=== PATIENT | male | born 1975 | race Caucasian/White ===

== ENCOUNTER → 2018-11-13 14:21 | Outpatient (CLI) | payer BC, SELFPAY ==
--- NOTE | 2018-11-13 14:33 | XR_ITS ---
XR knee RT 3V HISTORY: ITS.REASON: RT KNEE PAIN ORDERING PHYSICIAN: Dayna Babb PATIENT AGE: 43 years COMPARISON: None FINDINGS: No fracture or dislocation. No lytic or blastic change. Normal mineralization. No significant arthritic changes evident. No other significant findings IMPRESSION: Negative Knee
== END ==
PROVIDERS: PCP Nurse Practitioner Family; Visit Provider Nurse Practitioner Family
DX: M25.561 Pain in right knee (principal)
CPT/HCPCS: 73562

== ENCOUNTER → 2019-01-16 09:57 | Outpatient (CLI) | payer BC, SELFPAY ==
--- NOTE | 2019-01-16 09:58 | MR_ITS ---
MR knee RT wo con HISTORY: Knee pain with popping medially, painful to walk, limited range of motion ITS.REASON: right knee pain; evaluate for meniscal tear ORDERING PHYSICIAN: Kayla Cueva MD PATIENT AGE: 43 years Comparison: 01/05/2019 TECHNIQUE: Standard multiplanar multiecho sequences are performed without contrast. FINDINGS: The cruciate ligaments are intact. The collateral ligaments are intact. Patellar tendon and quadriceps tendon has an unremarkable appearance. Patellar cartilage is well preserved. There is a small knee joint effusion. There is a complex tear involves the posterior horn of the medial meniscus having both a horizontal and longitudinal component with increased T2 signal in the meniscus at the region.. There is some lobular increased T2 signal at the base and just medial to the tibial insertion of the posterior cruciate ligament of questionable significance possibly related to a flipped meniscal fragment with edema. There is a small knee joint effusion. IMPRESSION: 1. Complex tear involves the posterior horn of the medial meniscus with possible flipped meniscal fragment or 2. Small knee joint effusion
== END ==
PROVIDERS: PCP Family Medicine; Visit Provider Orthopaedic Surgery
DX: M25.561 Pain in right knee (principal)
CPT/HCPCS: 73721

== ENCOUNTER → 2019-01-24 11:23 | Outpatient (CLI) | payer BC, SELFPAY ==
--- NOTE | 2019-01-24 11:38 | XR_ITS ---
XR chest 2V HISTORY: HISTORY of smoking CAD. ITS.REASON: pre op ORDERING PHYSICIAN: Kayla Cueva MD PATIENT AGE: 43 years Technique: PA and lateral chest COMPARISON: 2 view chest from March 2017 also portable chest from 2016 FINDINGS: Nothing definitely acute. Subtle coarsening markings bilaterally suggesting some minor chronic changes but very minimal. Compatible with history of smoking. Mild hyperexpansion noted on the lateral view. Slight flattening of the diaphragm. The heart is normal in size. The rashmi and mediastinal structures appears stable. The more generous right rashmi appearsreasonably stable with no significant change. Normal pulmonary vascularity. Chest wall is unremarkable. T-spine appears stable. Intact. IMPRESSION Stable chest with nothing definitely acute. Mild hyperexpansion subtle chronic changes reflecting history of smoking
[2019-01-24 12:07] LABS: INR 0.95 (0.9-1.1); Prothrombin Time 9.8 seconds (9.4-11.8)
[2019-01-24 12:31] LABS: Basophils # 0.1 K/mm3 (0-0.2); Eosinophils # 0.2 K/mm3 (0.0-0.4); Eosinophils % 4.1 % (0.1-12.0); Hematocrit 48.7 % (42.0-52.0); Hemoglobin 16.3 g/dL (14.1-18.0); Lymphocytes # 2.2 K/mm3 (0.7-4.5); Lymphocytes % 38.2 % (10-50); Mean Corpuscular HGB Conc 33.5 g/dL (31.8-35.4); Mean Corpuscular Volume 92.3 fl (80-94); Mean Platelet Volume 9.1 fl (7.4-10.4); Monocytes # 0.4 K/mm3 (0.1-1.0); Monocytes % 6.8 % (1.7-9.3); Neutrophils # 2.9 K/mm3 (1.8-7.8); Neutrophils % 49.9 % (37.0-80.0); Platelet Count 187 K/mm3 (142-424); Red Blood Count 5.28 M/mm3 (4.60-6.20); Red Cell Distribution Width 13.1 % (11.5-17.5); White Blood Count 5.8 K/mm3 (4.8-10.8)
[2019-01-24 13:31] LABS: Alanine Aminotransferase 46 U/L (12-78); Albumin Level 4.1 gm/dL (3.4-5.0); Albumin/Globulin Ratio 1.3 (1.1-1.8); Alkaline Phosphatase 37 U/L (46-116); Anion Gap 13.3 mEq/L (5-15); Aspartate Amino Transferase 23 U/L (15-37); Bilirubin,Total 0.9 mg/dL (0.2-1.0); Blood Urea Nitrogen 20 mg/dL (7-18); Calcium 9.3 mg/dL (8.5-10.1); Carbon Dioxide 27 mmol/L (21.0-32.0); Chloride 104 mmol/L (98-107); Creatinine,Serum 0.86 mg/dL (0.70-1.30); Estimated Glomerular Filt Rate 98 ml/min (>60); GFR (African American) 118 ML/MIN (>60); Globulin 3.1 gm/dl (1.3-3.2); Glucose 101 mg/dL (74-106); Potassium 4.3 mmoL/L (3.5-5.1); Sodium 140 mmol/L (136-145); Total Protein,Serum 7.2 gm/dL (6.4-8.2)
== END ==
PROVIDERS: Visit Provider Orthopaedic Surgery
DX: Z01.818 Encounter for other preprocedural examination (principal); S83.231D Complex tear of medial meniscus, current injury, right knee, subsequent encounter
CPT/HCPCS: 36415; 71046; 80053; 85025; 85610

== ENCOUNTER 2019-03-28 15:30 | Outpatient (RCR) | payer BC, SELFPAY ==
--- NOTE | 2019-02-18 10:33 | HMH.PTOPEV ---
PT Outpatient Evaluation Rehab PT Outpatient Evaluation Start: 02/18/19 10:21 Freq: Status: Active Protocol: Document 02/18/19 10:21 NICOLE (Rec: 02/18/19 10:33 NICOLE [id number]) Electronically Signed By Osbaldo Garsia, PT 02/18/19 10:21 Outpatient Therapy Subjective History Subjective History Pt is a 43 year old male presenting to outpatient PT with reports of R post- surgical knee pain S/P R medial meniscectomy and medial plica excision performed on . Pt reports initial injury occurred on 01/12/19 when he was stepping out of the bed of a truck and his knee buckled upon contact with the ground. Comorbidities include HTN and hx of bilateral wrist surgeries. Main complaint is pain in distribution of distal vastus lateralis. Chief Complaint Pain,Stiff,Swelling,Weakness Symptom Type Sharp,Other Symptoms Relieved By Rest/Positioning,Ice Symptoms Aggravated By Standing,Physical Activity, Walking Prior Functional Limitations None Current Functional Limitations Housework,Standing,Squatting, Recreation Activity,Walking, Stairs,Balance Symptom Description Intermittent Level of pain today (0-10) 0 Pain scale - at its best (0-10) 0 Pain scale - at its worst (0-10) 4 Hip/Knee Eval Gait Observation General Gait Pattern Observation Antalgic Gait,Decrease Weight Bear (R) Assistive Device Assistive Devices None / NA Palpation Tenderness right Knee Palpation Finding Tenderness Knee Palpation Overall Comment R VL and medial joint line. MMT left Hip Flexion Strength Grade 5 Normal Hip Abduction Strength Grade 5 Normal Hip Adduction Strength Grade 5 Normal Hip Extension Strength Grade 5 Normal Hip External Rotation Strength Grade 5 Normal Hip Internal Rotation Strength Grade 5 Normal Knee Extension Strength Grade 5 Normal Knee Flexion Strength Grade 5 Normal right Hip Flexion Strength Grade 4 Good Hip Abduction Strength Grade 4 Good Hip Adduction Strength Grade 4 Good Hip Extension Strength Grade 4 Good Hip External Rotation Strength Grade 4- Good- Hip Internal Rotation Strength Grade 4- Good- Knee Extension Strength Grade
== END 2019-03-28 15:35 | disposition home or self-care (01) ==
LOC: PT 15:30
PROVIDERS: Visit Provider Orthopaedic Surgery
DX: S83.231D Complex tear of medial meniscus, current injury, right knee, subsequent encounter (principal)
CPT/HCPCS: 97010; 97014; 97110; 97163; G0283

== ENCOUNTER → 2019-07-10 09:18 | Outpatient (CLI) | payer BC, SELFPAY ==
--- NOTE | 2019-07-10 09:41 | XR_ITS ---
PROCEDURE: XR CHEST 2V CLINICAL HISTORY: COUGH Cough and congestion, smoker COMPARISON: CXR CHEST(2 VIEWS-NOT PORTABLE) from 03/29/2017 CXR1 CHEST-PORTABLE from 06/27/2017 CXR2V XR chest 2V from 01/24/2019 FINDINGS: Borderline cardiomegaly without failure. Lungs are clear bilaterally. The lungs are clear without infiltrates, suspicious nodules, or pleural effusions. Degenerative change thoracic spine IMPRESSION: Borderline cardiomegaly. No change with no acute finding Dictated by: Rusty Roberts MD 07/10/2019 13:22 Electronically signed by Rusty Roberts MD in [place] 07/10/2019 13:22
== END ==
PROVIDERS: PCP Nurse Practitioner Family; Visit Provider Nurse Practitioner Family
DX: R05 Cough (principal)
CPT/HCPCS: 71046

== ENCOUNTER → 2019-12-12 13:50 | Outpatient (CLI) | payer BC, SELFPAY | PROVIDERS: PCP Nurse Practitioner Family; Visit Provider Nurse Practitioner Family | DX: R40.0 Somnolence (principal); R51 Headache; R06.83 Snoring; G47.33 Obstructive sleep apnea (adult) (pediatric) | CPT/HCPCS: G0399 ==

== ENCOUNTER → 2020-01-19 14:00 | Outpatient (CLI) | payer BC, SELFPAY ==
--- NOTE | 2020-01-19 14:03 | XR_ITS ---
PROCEDURE: XR CHEST 2V CLINICAL HISTORY: COUGH, FEVER, CHILLS,SOB COMPARISON: CXR2V XR chest 2V from 01/24/2019 XR CHEST 2V from 07/10/2019 FINDINGS: The cardiomediastinal silhouette and pulmonary vascularity are within normal limits. The lungs are clear without infiltrates, suspicious nodules, or pleural effusions. No acute bony abnormalities. IMPRESSION: No acute findings. Dictated by: Aaron Page 01/19/2020 15:49 Electronically signed by Aaron Page in [place] 01/19/2020 15:49
[2020-01-19 14:14] LABS: Adenovirus,PCR Not Detected (NotDetected); Bordetella Pertussis Not Detected (NotDetected); Chlamydophila Pneumoniae, PCR Not Detected (NotDetected); Coronavirus 229E Not Detected (NotDetected); Coronavirus NL63 Not Detected (NotDetected); Coronavirus OC43 Not Detected (NotDetected); Coronovirus HKU1,PCR Not Detected (NotDetected); Human Metapneumovirus Not Detected (NotDetected); Influenza A, PCR Not Detected (NotDetected); Influenza AH1, 2009 Not Detected (NotDetected); Influenza AH1, PCR Not Detected (NotDetected); Influenza AH3,PCR Not Detected (NotDetected); Influenza B, PCR Not Detected (NotDetected); Mycoplasma Pneumoniae, PCR Not Detected (NotDetected); Parainfluenza 1, PCR Not Detected (NotDetected); Parainfluenza 2, PCR Not Detected (NotDetected); Parainfluenza 3, PCR Not Detected (NotDetected); Parainfluenza 4, PCR Not Detected (NotDetected); Respiratory Syncytial Virus Not Detected (NotDetected); Rhinovirus/Enterovirus Not Detected (NotDetected)
== END ==
PROVIDERS: PCP Nurse Practitioner; Visit Provider Nurse Practitioner
DX: R06.02 Shortness of breath (principal); R05 Cough; R50.9 Fever, unspecified
CPT/HCPCS: 71046; 87486; 87581; 87633; 87798

== ENCOUNTER → 2020-01-30 14:59 | Outpatient (CLI) | payer BC, SELFPAY ==
--- NOTE | 2020-02-01 20:10 | PC.NURSE ---
Dr. Salgado notified of negative COVID-19 at 195 on 02/01/20. Pt notified @ 2009 on 02/01/20.
[2020-02-02 11:03] LABS: Covid-19 Nasal PCR Sendout Lex NOT DETECTED
== END ==
PROVIDERS: Visit Provider Nurse Practitioner Family
DX: R06.02 Shortness of breath (principal); R05 Cough; R50.9 Fever, unspecified

== ENCOUNTER → 2020-06-25 10:03 | Outpatient (CLI) | payer BC, SELFPAY ==
--- NOTE | 2020-06-25 | XR_ITS ---
PROCEDURE: XR WRIST LT MIN 3V CLINICAL INDICATION: L WRIST PAIN, STATUS POST WRIST SURGERY COMPARISON: CR WRL3 WRIST-3 VIEWS-LT from 01/01/2015 FINDINGS: The volar metallic radial plate is again noted fixated by multiple threaded screws. There is no evidence of loosening of the plate or screws when compared to the previous study 01/01/2015., the distal ulna is intact. The carpal bones appear intact. IMPRESSION: No acute findings. Dictated by: Dr. Blaine Castaneda MD 06/25/2020 12:59 Dr. Blaine Castaneda MD in [place] 06/25/2020 12:59
--- NOTE | 2020-06-25 | XR_ITS ---
PROCEDURE: XR WRIST RT MIN 3V CLINICAL INDICATION: R WRIST PAIN, STATUS POST WRIST SURGERY COMPARISON: CR WRL3 WRIST-3 VIEWS-LT from 01/01/2015 FINDINGS: The volar metallic radial plate is noted fixated by multiple threaded screws into the distal radius and radial styloid. There is mild deformity of the distal radius consistent with the old healed fracture. There is an unfused fracture ulnar styloid. The carpal bones appear intact. There is minor narrowing and spurring of the 1st carpometacarpal joint. There is no acute fracture seen. IMPRESSION: Stable previous ORIF distal radial fracture, unfused ulnar styloid fracture fragment, no previous studies available for comparison. Dictated by: Dr. Blaine Castaneda MD 06/25/2020 12:56 Dr. Blaine Castaneda MD in [place] 06/25/2020 12:56
== END ==
PROVIDERS: PCP Nurse Practitioner Family; Visit Provider Nurse Practitioner Family
DX: M25.531 Pain in right wrist (principal); M25.532 Pain in left wrist; Z98.890 Other specified postprocedural states
CPT/HCPCS: 73110

== ENCOUNTER 2020-07-24 08:28 | Emergency (ER) | payer BC, SELFPAY ==
[2020-07-24 08:30] VITALS: BP 157/98; PULSE 79; RESP 20; TEMP 36.6; O2SAT 100; BMI 38.6
--- NOTE | 2020-07-24 08:37 | HMH.EDGENADL ---
ED Disposition Clinical Impression: Ureteral calculus, Nephrolithiasis, Cyst of spleen Disposition: Home, Self-Care Condition on Discharge: Good Instructions: DI for Kidney Stones Additional Instructions: Cipro as prescribed. Zofran as needed for nausea and vomiting. [place] as needed for pain. Additional instructions for KIDNEY STONE (URETERAL CALCULUS): See your physician as soon as possible for further evaluation. Drink plenty of fluids. Strain your urine and save any stones you catch. Return immediately if you develop a fever or have uncontrollable vomiting or uncontrollable pain. Additional instructions for URINARY TRACT INFECTION: See your physician in 2-3 days for follow up and culture results. Return immediately if you have an uncontrollable fever greater than 102 degrees, severe back or abdominal pain, inability to urinate, or repetitive vomiting. What is known about DIET and KIDNEY STONES: Most kidney stones contain calcium oxalate. The logical assumption would be that you should avoid calcium and oxalate in your diet. Contrary to what you would think, this is not necessarily the case. What is actually recommended for kidney stone prevention is a diet that contains MODERATELY HIGH AMOUNTS OF CALCIUM and is LOW IN SODIUM with PLENTY OF FLUIDS. Avoiding oxalate containing foods is recommended by some experts, but is controversial. Following the DASH (Dietary Approaches to Stop Hypertention) has been shown to significantly reduce the incidence of kidney stones. The DASH diet encourages you to reduce the sodium in your diet and eat a variety of foods rich in nutrients that help lower blood pressure, such as potassium, calcium and magnesium. Recommendations: Fluids: It is widely agreed upon that you need to drink plenty of fluids. A minimum would be 8-10 glasses (8 oz each) of fluid per day. Some experts recommend as much as 14-15 glasses a day. Sodium: The way to lower calcium in your urine is to lower your sodium intake. Try not to get more than 1500 mg a day. Calcium: Dietary calcium prevents absorption of oxalate. Make sure you get about 1000 to 1200 mg a day. You can get enough calcium from dairy products without taking supplements. Calcium should be ingested with meals, not in between meals. You need to get your calcium at mealtime to decrease the absorption of oxalate from other foods. Oxalate: Although some experts recommend avoiding oxalate in your diet, there have been no studies that prove this works. Eating more calcium will reduce oxalate absorption, and is probably all that is needed to reduce oxalate in your urine. Oxalate containing foods are generally good for you in all other respects - leafy greens, nuts, etc... So avoiding them unnecessarily might not be the best thing for your health. If you want to do something to avoid oxalate, avoid spinach and rhubarb - those are extremely high in oxalate (or at least eat a high calcium meal with these). ALSO: If you retrieve your stone by straining your urine, take it to your physician for stone analysis, which can help tailor your dietary recommendations. For further reading, check out the [facility] web page about the kidney stone diet: [email or web address] Prescriptions: Hydrocod/Acet 5/325 mg [[place] 5/325mg tablet] 1 tab PO Q6HP PRN #10 tab PRN Reason: Pain Transmission Status: Received by [facility] # Ciprofloxacin HCl [Ciprofloxacin 500mg Tab] 500 mg PO BID #20 tab Transmission Status: Received by [facility] # Ondansetron [Zofran 4mg ODT] 4 mg PO TIDP PRN #10 tab.rapdis PRN Reason: Nausea And Vomiting Transmission Status: Received by [facility] # Referrals: Dayna Babb APRN [Primary Care Provider] - - Critical Care Critical Care Time: No Attestation: On , the high probability of a clinically significant,
--- NOTE | 2020-07-24 08:52 | CT_ITS ---
PROCEDURE: CT ABDOMEN PELVIS WO CON CLINICAL INDICATION: right flank pain COMPARISON: CT ABDPELW CT ABD PELVIS W/ CONTRAST from 06/27/2017 TECHNIQUE: Axial images obtained with sagittal and coronal reformats. All CT scans at the facility use one or more dose reduction, viz: automated exposure control, ma/kV adjustment per patient size (including targeted exams where dose is matched to indication, i.e. head), or iterative reconstruction technique. FINDINGS: Lower thorax: The lower lung vera are clear and there is no pleural fluid. Cardiac size is normal and there is no pericardial effusion. ABDOMEN: Liver: No masses or biliary dilatation. Gallbladder: Nondistended. No radio opaque stones. Pancreas: No masses or peripancreatic fluid collections. Spleen: There is a spherical partially calcified cystic-appearing mass superior aspect of the spleen unchanged in size and overall appearance from the previous CT exam 06/27/2017 and probably a calcified posttraumatic cyst. It measures 4.5 by 4.9 x 4.4 cm. Adrenals: unremarkable Kidneys/ureters: The kidneys are normal in size. There is a tiny 1-2 mm nonobstructing calculus lower pole left kidney and a similar 1-2 mm nonobstructing calculus midpole right kidney. There is borderline hydroureter right-side down to the UV junction. There is a small 3-4 mm calculus sitting in the urinary bladder just beyond the UV junction probably recently passed. ABDOMEN & PELVIS: Stomach bowel: There is a small sliding hiatal hernia. The stomach and small bowel appear normal. The appendix is normal in caliber and partially air-filled. There is moderate scattered stool and gas seen throughout the colon Peritoneum: No abnormal fluid collections. No obvious inflammatory changes. No free air. Lymph nodes: No enlarged lymph nodes apparent. Vasculature: No evidence of abdominal aortic aneurysm. No retroperitoneal hemorrhage evident. Bones: No acute fracture PELVIS: Reproductive: unremarkable Bladder: The urinary bladder is partially decompressed, a small calculus sits posterior superior right side of the bladder probably recently passed. The prostate is normal. Appendix: Unremarkable. No distention or periappendiceal phlegmonous change. . IMPRESSION: Stable benign-appearing calcified cystic lesion of the spleen. Tiny nonobstructing calculus in each kidney. Small calculus right side of the urinary bladder probably representing a recently passed right ureteral calculus. Dictated by: Dr. Blaine Castaneda MD 07/24/2020 09:54 Dr. Blaine Castaneda MD in [place] 07/24/2020 09:54
[2020-07-24 08:58] LABS: Basophils # 0.1 K/mm3 (0-0.2); Basophils % 0.5 % (0.1-2.0); Eosinophils % 0.4 % (0.1-12.0); Hematocrit 48.5 % (42.0-52.0); Hemoglobin 16.7 g/dL (14.1-18.0); Lymphocytes # 1.2 K/mm3 (0.7-4.5); Lymphocytes % 11.6 % (10-50); Mean Corpuscular HGB Conc 34.5 g/dL (31.8-35.4); Mean Corpuscular Volume 92.6 fl (80-94); Mean Platelet Volume 8.9 fl (7.4-10.4); Microscopic, Urine URINE MICROSCOPIC (MICROSCOPIC); Monocytes # 0.4 K/mm3 (0.1-1.0); Monocytes % 3.4 % (1.7-9.3); Neutrophils % 84.1 % (37.0-80.0); Platelet Count 228 K/mm3 (142-424); Red Blood Count 5.23 M/mm3 (4.60-6.20); Red Cell Distribution Width 13.3 % (11.5-17.5); White Blood Count 10.7 K/mm3 (4.8-10.8)
[2020-07-24 09:04] LABS: Appearance,Urine SL CLOUDY (Clear); Bilirubin,Urine Negative (Negative); Blood, Urine TRACE-I (Negative); Chloride 102 mmol/L (98-107); Color,Urine YELLOW (Yellow); Glucose,Urine (UA) Negative (Negative); Ketones,Urine Negative (Negative); Leukocyte Esterase,Urine 1+ (Negative); Nitrate,Urine Negative (Negative); Potassium 4.2 mmoL/L (3.5-5.1); Protein,Urine Negative (Negative); Sodium 139 mmol/L (136-145); Specific Gravity, Urine >= 1.030 (1.005-1.030); Urobilinogen,Urine 0.2 EU/dl (0.2)
[2020-07-24 09:06] LABS: Bacteria,Urine 1+ /lpf
[2020-07-24 09:07] LABS: Alanine Aminotransferase 46 U/L (12-78); Albumin Level 4.7 g/dl (3.5-5.0); Albumin/Globulin Ratio 1.6 (1.1-1.8); Alkaline Phosphatase 41 U/L (38-126); Anion Gap 13.2 mEq/L (5-15); Aspartate Amino Transferase 35 U/L (17-59); Bilirubin,Total 0.9 mg/dl (0.2-1.3); Blood Urea Nitrogen 25 mg/dl (9-20); Calcium 9.9 mg/dl (8.4-10.2); Carbon Dioxide 28 mmol/L (22.0-30.0); Creatinine Clearance Estimated 144 mL/min (50-200); Estimated Glomerular Filt Rate 66 ml/min (>60); GFR (African American) 80 ML/MIN (>60); Globulin 2.9 g/dL (1.3-3.2); Glucose 149 mg/dl (74-100); Lipase 87 U/L (23-300); Total Protein,Serum 7.6 g/dl (6.3-8.2)
--- NOTE | 2020-07-24 09:14 | PC.NURSE ---
Pt to rad.
[2020-07-24 10:17] VITALS: BP 145/85; PULSE 80; RESP 17; TEMP 36.8; O2SAT 100
== END 2020-07-24 10:24 | disposition home or self-care (01) ==
PROVIDERS: Emergency Provider Emergency Medicine; PCP Nurse Practitioner Family
DX: N20.0 Calculus of kidney (principal); N20.1 Calculus of ureter; D73.4 Cyst of spleen; Z88.5 Allergy status to narcotic agent; F17.210 Nicotine dependence, cigarettes, uncomplicated
CPT/HCPCS: 74176; 80053; 81001; 83690; 85025; 87086; 96374; 96375; 99283; J2405

== ENCOUNTER 2020-07-28 13:19 | Emergency (ER) | payer BC, SELFPAY ==
[2020-07-28 13:47] VITALS: BP 131/80; PULSE 84; RESP 19; TEMP 36.9; O2SAT 98; BMI 39.2
--- NOTE | 2020-07-28 14:05 | HMH.EDUTC ---
[facility] [place] Impression: Allergic rhinitis Qualifiers: Allergic rhinitis trigger: unspecified Allergic rhinitis seasonality: unspecified Qualified Code(s): J30.9 - Allergic rhinitis, unspecified Disposition: Home, Self-Care Condition on Discharge: Good Instructions: Allergic Rhinitis, DI for Allergic Rhinitis Additional Instructions: *Monitor Temp, Over the counter Motrin or Tylenol as directed/as needed Tylenol every 4 hours and Motrin every 6 hours (as long as your family doctor has told you that you can take it) for fever or pain. and straight to ER if unable to lower temp less than 101.0 after medication given *Warm salt water gargles may help to soothe the throat *Throat Lozenges *Warm fluids like tea with honey may help to soothe the throat *Sleep elevated *Humidifier/Vaporizer *Flonase 2 sprays in each nostril daily but be aware that it may take 2-3 days before you notice improvement Follow up IMMEDIATELY for new or worsening symptoms or no Noticeable improvement over the next 48-72 hours. 911 for difficulty breathing or swallowing You was tested for today for COVID19 your test result should be back later this evening, you may call back later this evening to see if your test results are back and the result You was given a handout with instructions for Self Quarantine and Self isolation for while you wait on test results and what to do if they are positive Prescriptions: Fluticasone Propionate [Flonase 50mcg nasal spray 16gm] 1 - 2 spr NS DAILY #1 bottle Transmission Status: Received by [facility] #[id number] Referrals: Dayna Babb APRN [Primary Care Provider] - As needed Forms: Work/School Release Time of Disposition: 14:10 Medical Decision Making - Sam Inquiry Pt receiving controlled substance: No Sam was queried for this patient: No Vital Signs: 07/28/20 13:47 Temperature 98.4 F Temperature Source Oral Pulse Rate [Radial] 84 Respiratory Rate 19 Blood Pressure [Right Arm] 131/80 Blood Pressure Mean [Right Arm] 97 Blood Pressure Source [Right Arm] Automatic Cuff Blood Pressure Position [Right Arm] Sitting 02 Sat by Pulse Oximetry 98 Oxygen Delivery Method Room Air Orders (Tests/Meds): ORDERS Category Date Time Status Covid-19 Nasal PCR ([facility]) Routine Lab 07/28/20 13:59 [place] [facility] [place] - General Stated complaint: Cough, runny nose Time Seen by Provider: 07/28/20 14:05 Mode of Arrival: Ambulatory Source of Information: Patient Limitations: No Limitations Description of Symptoms (Recalled from Triage Doc. by RN): runny nose, sneezing, and cough HEENT Symptoms (Recalled from RN notes): Yes Resp Symptoms (Recalled from RN notes): No Skin Symptoms (Recalled from RN notes): No MS Symptoms (Recalled from RN notes): No Functional Status (Recalled from RN notes): wnl - History of Present Illness Provider Complaint: Paitent states that he has been having cough, sneezing and runny nose States that he feels like it is allergies but not had seasonal allergies before States that he was at work and they sent him and his son home due to both having similar symptoms - Related Data Home Medications Medication Instructions Recorded Confirmed losartan 50 mg tablet 50 mg PO DAILY 01/07/19 04/18/19 Previous Rx's Medication Instructions Recorded Ibuprofen [Ibuprofen 600mg 600 mg PO Q6HP PRN #30 tab 01/05/19 Tablet] Ciprofloxacin HCl [Ciprofloxacin 500 mg PO BID #20 tab 07/24/20 500mg Tab] Hydrocod/Acet 5/325 mg [[place] 1 tab PO Q6HP PRN #10 tab 07/24/20 5/325mg tablet] Ondansetron [Zofran 4mg ODT] 4 mg PO TIDP PRN #10 tab.rapdis 07/24/20 Fluticasone Propionate [Flonase 1 - 2 spr NS DAILY #1 bottle 07/28/20 50mcg nasal spray 16gm] Allergies Allergy/AdvReac Type Severity Reaction Status Date / Time codeine [CODEINE] Allergy Mild Verified 04/18/19 13:28 - Worker's Comp Is this a Worker's Comp case?: No [facility] History - Hep
[2020-07-28 14:42] VITALS: BP 131/80; PULSE 84; RESP 19; TEMP 36.9; O2SAT 98
== END 2020-07-28 14:43 | disposition home or self-care (01) ==
PROVIDERS: Emergency Provider Nurse Practitioner; PCP Nurse Practitioner Family
DX: J30.9 Allergic rhinitis, unspecified (principal); Z20.828 Contact with and (suspected) exposure to other viral communicable diseases; I10 Essential (primary) hypertension; F17.210 Nicotine dependence, cigarettes, uncomplicated
CPT/HCPCS: 99201; U0003

== ENCOUNTER → 2020-08-23 09:24 | Outpatient (CLI) | payer BC, SELFPAY ==
[2020-08-23 10:20] VITALS: PULSE 65; PULSE 70
== END ==
PROVIDERS: PCP Nurse Practitioner Family; Visit Provider Family Medicine
DX: R06.2 Wheezing (principal); Z72.0 Tobacco use
CPT/HCPCS: 94060; 94640

== ENCOUNTER 2020-11-26 08:35 | Emergency (ER) | payer BC, SELFPAY ==
[2020-11-26] VITALS (8 sets, daily range): BP systolic 117–168; BP diastolic 51–100; PULSE 56–74; RESP 16–20; TEMP 36.6–37.1; O2SAT 92–98; BMI 40.2
--- NOTE | 2020-11-26 08:34 | ECG_ITS ---
APPROVED REPORT Exam: Resting ECG HR:86 bpm ECG Measurements Heart Rate 86 AXES SC 148 P 27 QRSd 96 QRS 142 QT 378 T 23 QTc 452 Conclusion Normal sinus rhythm Right axis deviation Abnormal ECG Electronically signed by : Franklin Banegas, 11/26/2020 15:58:16
--- NOTE | 2020-11-26 08:51 | XR_ITS ---
PROCEDURE: XR CHEST 2V CLINICAL HISTORY: chest pain COMPARISON: CR CXR2V XR chest 2V from 01/24/2019 CR XR CHEST 2V from 07/10/2019 DX XR CHEST 2V from 01/19/2020 FINDINGS: The cardiomediastinal silhouette and pulmonary vascularity are within normal limits. The lungs are clear without infiltrates, suspicious nodules, or pleural effusions. No acute bony abnormalities. IMPRESSION: No acute findings. Dictated by: Rusty Roberts MD 11/26/2020 09:13 Rusty Roberts MD in [place] 11/26/2020 09:13
[2020-11-26 08:59] LABS: Basophils # 0.1 K/mm3 (0-0.2); Basophils % 1.5 % (0.1-2.0); Chloride 105 mmol/L (98-107); Eosinophils # 0.2 K/mm3 (0.0-0.4); Eosinophils % 2.4 % (0.1-12.0); Hematocrit 47.8 % (42.0-52.0); Hemoglobin 15.5 g/dL (14.1-18.0); Lymphocytes # 2.4 K/mm3 (0.7-4.5); Lymphocytes % 33.5 % (10-50); Mean Corpuscular HGB Conc 32.4 g/dL (31.8-35.4); Mean Corpuscular Volume 92.6 fl (80-94); Monocytes # 0.4 K/mm3 (0.1-1.0); Monocytes % 4.9 % (1.7-9.3); Neutrophils # 4.1 K/mm3 (1.8-7.8); Neutrophils % 57.7 % (37.0-80.0); Platelet Count 218 K/mm3 (142-424); Potassium 3.5 mmoL/L (3.5-5.1); Red Blood Count 5.17 M/mm3 (4.60-6.20); Sodium 139 mmol/L (136-145); White Blood Count 7.1 K/mm3 (4.8-10.8)
[2020-11-26 09:02] LABS: Anion Gap 9.5 mEq/L (5-15); Blood Urea Nitrogen 21 mg/dl (9-20); Calcium 9.9 mg/dl (8.4-10.2); Carbon Dioxide 28 mmol/L (22.0-30.0); Creatinine Clearance Estimated 200 mL/min (50-200); Estimated Glomerular Filt Rate 92 ml/min (>60); GFR (African American) 111 ML/MIN (>60); Glucose 132 mg/dl (74-100)
--- NOTE | 2020-11-26 09:03 | HMH.EDCP ---
ED Disposition Clinical Impression: Nonspecific chest pain Hypertension Qualifiers: Hypertension type: essential hypertension Qualified Code(s): I10 - Essential (primary) hypertension Disposition: Home, Self-Care Condition on Discharge: Good Instructions: DI for Atypical Chest Pain Referrals: PCP,No [Non-Staff] - Bret Edwards MD [Staff Physician] - - Critical Care Critical Care Time: No Attestation: On 11/26/20, the high probability of a clinically significant, sudden or life threatening deterioration of the following system(s) required my full and direct attention, intervention and personal management. The time I documented below is in addition to time spent performing reported procedures but includes the following listed in this critical care notation. Medical Decision Making - Medical Records Medical records reviewed: Yes: I reviewed the patient's medical records. - Sam Inquiry Pt receiving controlled substance: No Vital Signs: 11/26/20 08:36 11/26/20 09:22 11/26/20 09:30 Temperature 98.7 F Temperature Source Oral Pulse Rate [Left Radial] 74 67 70 Respiratory Rate 20 18 18 Blood Pressure [Right Arm] 168/86 H 135/100 H 130/75 Blood Pressure Mean [Right Arm] 113 111 93 Blood Pressure Source [Right Arm] Automatic Cuff Automatic Cuff Blood Pressure Position [Right Arm] Sitting Supine 02 Sat by Pulse Oximetry 96 94 L 96 Oxygen Delivery Method Room Air Room Air 11/26/20 10:40 11/26/20 11:26 11/26/20 11:40 Temperature Temperature Source Pulse Rate [Left Radial] 56 L 64 59 L Respiratory Rate 16 18 18 Blood Pressure [Right Arm] 123/80 117/80 124/79 Blood Pressure Mean [Right Arm] 94 92 94 Blood Pressure Source [Right Arm] Blood Pressure Position [Right Arm] 02 Sat by Pulse Oximetry 92 L 97 95 Oxygen Delivery Method 11/26/20 12:35 Temperature Temperature Source Pulse Rate [Left Radial] 59 L Respiratory Rate 16 Blood Pressure [Right Arm] 136/51 L Blood Pressure Mean [Right Arm] 79 Blood Pressure Source [Right Arm] Blood Pressure Position [Right Arm] 02 Sat by Pulse Oximetry 97 Oxygen Delivery Method - Lab Data Lab Results 11/26/20 08:35: Sodium 139, Potassium 3.5, Chloride 105, Carbon Dioxide 28, Anion Gap 9.5, BUN 21 H, Creatinine 0.90, Estimated Creat Clear 200, Estimated GFR 92, Est GFR ( Amer) 111, Glucose 132 H, Calcium 9.9, Troponin I < 0.01 11/26/20 08:35: WBC 7.1, RBC 5.17, Hgb 15.5, Hct 47.8, MCV 92.6, MCH 30.0, MCHC 32.4, RDW 13.0, Plt Count 218, MPV 9.0, Neut % (Auto) 57.7, Lymph % (Auto) 33.5, [place] % (Auto) 4.9, Eos % (Auto) 2.4, Baso % (Auto) 1.5, Neut # (Auto) 4.1, Lymph # (Auto) 2.4, [place] # (Auto) 0.4, Eos # (Auto) 0.2, Baso # (Auto) 0.1 11/26/20 11:40: Troponin I < 0.01 Result diagrams: 11/26/20 08:35 11/26/20 08:35 Orders (Tests/Meds): ORDERS Category Date Time Status Troponin I Q3H Lab 11/26/20 15:00 Ordered - ECG Data Tracing #1 ECG initial impression date: 11/26/20 ECG initial impression time: 08:36 ECG normal with no acute: arrhythmias, ischemia, conduction abnormalities, chamber hypertrophy - Reevaluation(s) Time: 12:36 Reevaluation #1: On reevaluation, patient is feeling better. 2 - troponins. No significant EKG changes. Patient needs to follow-up with PCP. Given strict return precautions. Verbalized understanding. Medical Decision Narrative: 45-year-old male presented to the emergency department with chest discomfort. Patient appears very anxious on examination. His blood pressure is improving. Patient is low risk for acute coronary syndrome based on heart score. Work-up initiated. Chest Pain HPI - General Chief Complaint: Chest Pain Stated Complaint: chest pain Time Seen by Provider: 11/26/20 08:45 Mode of Arrival: Ambulatory Limitations: No Limitations Description of Symptoms (Recalled from ER Triage Doc. by RN): c/o center chest pain that started about 30 minutes ago. His was wo
[2020-11-26 09:19] LABS: Troponin I < 0.01 ng/ml (0.00-0.034)
--- NOTE | 2020-11-26 11:43 | PC.NURSE ---
repeat trop drawn and sent to lab
[2020-11-26 12:26] LABS: Troponin I < 0.01 ng/ml (0.00-0.034)
== END 2020-11-26 12:50 | disposition home or self-care (01) ==
PROVIDERS: Emergency Provider Emergency Medicine; PCP Nurse Practitioner Family
DX: R07.9 Chest pain, unspecified (principal); I10 Essential (primary) hypertension; F17.210 Nicotine dependence, cigarettes, uncomplicated; Z88.5 Allergy status to narcotic agent
CPT/HCPCS: 71046; 80048; 84484; 85025; 93005; 99283

== ENCOUNTER → 2021-03-28 12:06 | Outpatient (CLI) | payer BC, SELFPAY | PROVIDERS: PCP Family Medicine; Visit Provider Family Medicine | DX: Z20.822 Contact with and (suspected) exposure to COVID-19 (principal) | CPT/HCPCS: U0003 ==

== ENCOUNTER → 2021-06-14 12:08 | Outpatient (CLI) | payer BC, SELFPAY ==
--- NOTE | 2021-06-14 12:10 | XR_ITS ---
PROCEDURE: XR WRIST RT MIN 3V CLINICAL INDICATION: right wrist pain COMPARISON: CR WRL3 WRIST-3 VIEWS-LT from 01/01/2015 CR XR WRIST RT MIN 3V from 06/25/2020 CR XR WRIST LT MIN 3V from 06/25/2020 FINDINGS: No fracture or dislocation. No lytic or blastic change. There is normal mineralization. There is a volar bone plate at the distal radius anteriorly with multiple cortical screws with good alignment. Old distal radial fracture noted. Old ununited ulnar styloid fracture. There are mild osteoarthritic changes at the radiocarpal joint. There also appears to be an old fracture of the 5th metacarpal Other findings:None. IMPRESSION: Postsurgical changes with old healed distal radial ulnar and 5th metacarpal fractures. Osteoarthritic changes radiocarpal joint Dictated by: Rusty Roberts MD 06/14/2021 13:36 Rusty Roberts MD in [place] 06/14/2021 13:36
--- NOTE | 2021-06-14 14:19 | XR_ITS ---
PROCEDURE: XR WRIST LT MIN 3V CLINICAL INDICATION: left wrist pain COMPARISON: CR WRL3 WRIST-3 VIEWS-LT from 01/01/2015 CR XR WRIST RT MIN 3V from 06/25/2020 CR XR WRIST LT MIN 3V from 06/25/2020 CR XR WRIST RT MIN 3V from 06/14/2021 FINDINGS: There is a small volar bone plate along the distal radius anteriorly with good alignment Small cystic areas present within the lunate not significantly changed measuring approximately 1 cm transverse Other findings:None. IMPRESSION: No acute findings. Dictated by: Rusty Roberts MD 06/14/2021 15:32 Rusty Roberts MD in [facility] 06/14/2021 15:32
--- NOTE | 2021-06-14 14:19 | XR_ITS ---
PROCEDURE: XR WRIST RT 2V CLINICAL INDICATION: right wrist pain COMPARISON: CR WRL3 WRIST-3 VIEWS-LT from 01/01/2015 CR XR WRIST RT MIN 3V from 06/25/2020 CR XR WRIST LT MIN 3V from 06/25/2020 CR XR WRIST RT MIN 3V from 06/14/2021 FINDINGS: Status post ORIF distal radial fracture with volar bone plate multiple cortical screws with good alignment of the healing distal radial fracture. Ulnar styloid process fracture once again noted The joint spaces are well-preserved. No significant degenerative/arthritic changes. No erosive changes evident. Other findings:None. IMPRESSION: Healing distal radial fracture with good alignment Dictated by: Rusty Roberts MD 06/14/2021 15:30 Rusty Roberts MD in [facility] 06/14/2021 15:30
== END ==
LOC: RAD 12:09
PROVIDERS: PCP Family Medicine; Visit Provider Orthopaedic Surgery
DX: M25.531 Pain in right wrist (principal); M25.532 Pain in left wrist
CPT/HCPCS: 73100; 73110

== ENCOUNTER → 2021-06-20 12:30 | Outpatient (CLI) | payer BC, SELFPAY ==
--- NOTE | 2021-06-20 12:37 | CT_ITS ---
PROCEDURE: CT WRIST RT WO CON CLINICAL HISTORY: sp ORIF 15+ years ago outside facility Wrist pain COMPARISON: CR XR WRIST RT 2V from 06/14/2021 TECHNIQUE: Axial images obtained with sagittal and coronal reformats. All CT scans at the facility use one or more dose reduction, viz: automated exposure control, ma/kV adjustment per patient size (including targeted exams where dose is matched to indication, i.e. head), or iterative reconstruction technique. FINDINGS: S/p ORIF of the distal radius. There is an anterior bone plate with multiple cortical screws. No intra-articular extension of the screws.. The prosthesis appears intact. No broken screws or loosening of the prosthesis evident. There is good alignment of the distal radius. There is an ununited ulnar styloid process fracture. No acute fracture or dislocation. No significant arthritic changes apparent. No lytic or blastic change apparent. No abnormal fluid collections. Small hyperdensity is present in the subcutaneous region of the wrist anteriorly and slightly lateral and could be due to a subcutaneous calcification or even a small foreign body at approximately 1-2 mm. IMPRESSION: Status post ORIF distal radius as described above with good alignment. No intra-articular extension of the screws. Dictated by: Rusty Roberts MD 06/21/2021 10:37 Rusty Roberts MD in [facility] 06/21/2021 10:37
== END ==
LOC: RAD 12:31
PROVIDERS: PCP Family Medicine; Visit Provider Orthopaedic Surgery
DX: M25.531 Pain in right wrist (principal)
CPT/HCPCS: 73200

== ENCOUNTER → 2021-07-25 13:23 | Outpatient (CLI) | payer BC, SELFPAY ==
--- NOTE | 2021-07-25 13:33 | XR_ITS ---
PROCEDURE: XR CHEST 2V CLINICAL HISTORY: preop; surgery 07/28/ smoker hypertension COMPARISON: CR XR CHEST 2V from 07/10/2019 DX XR CHEST 2V from 01/19/2020 CR XR CHEST 2V from 11/26/2020 FINDINGS: There is mild cardiomegaly without failure. The lungs are clear without infiltrates, suspicious nodules, or pleural effusions. No acute bony abnormalities. IMPRESSION: Mild cardiomegaly otherwise negative Dictated by: Rusty Roberts MD 07/25/2021 17:32 Rusty Roberts MD in [facility] 07/25/2021 17:32
[2021-07-25 13:41] LABS: Basophils # 0.1 K/mm3 (0-0.2); Basophils % 1.4 % (0.1-2.0); Eosinophils # 0.3 K/mm3 (0.0-0.4); Eosinophils % 3.6 % (0.1-12.0); Hematocrit 46.6 % (42.0-52.0); Hemoglobin 15.4 g/dL (14.1-18.0); Lymphocytes # 2.7 K/mm3 (0.7-4.5); Lymphocytes % 32.9 % (10-50); Mean Corpuscular Volume 96.9 fl (80-94); Mean Platelet Volume 9.1 fl (7.4-10.4); Monocytes # 0.4 K/mm3 (0.1-1.0); Monocytes % 4.8 % (1.7-9.3); Neutrophils # 4.7 K/mm3 (1.8-7.8); Neutrophils % 57.3 % (37.0-80.0); Platelet Count 204 K/mm3 (142-424); Red Blood Count 4.81 M/mm3 (4.60-6.20); Red Cell Distribution Width 13.8 % (11.5-17.5); White Blood Count 8.2 K/mm3 (4.8-10.8)
[2021-07-25 14:41] LABS: Alanine Aminotransferase 38 U/L (12-78); Albumin/Globulin Ratio 1.7 (1.1-1.8); Alkaline Phosphatase 35 U/L (38-126); Anion Gap 6.2 mEq/L (5-15); Aspartate Amino Transferase 28 U/L (17-59); Bilirubin,Total 0.9 mg/dl (0.2-1.3); Blood Urea Nitrogen 16 mg/dl (9-20); Calcium 9.1 mg/dl (8.4-10.2); Carbon Dioxide 31 mmol/L (22.0-30.0); Chloride 105 mmol/L (98-107); Estimated Glomerular Filt Rate 122 ml/min (>60); GFR (African American) 148 ML/MIN (>60); Globulin 2.4 g/dL (1.3-3.2); Glucose 103 mg/dl (74-100); Potassium 4.2 mmoL/L (3.5-5.1); Sodium 138 mmol/L (136-145); Total Protein,Serum 6.4 g/dl (6.3-8.2)
== END ==
PROVIDERS: Visit Provider Orthopaedic Surgery
DX: Z01.818 Encounter for other preprocedural examination (principal); G56.03 Carpal tunnel syndrome, bilateral upper limbs
CPT/HCPCS: 36415; 71046; 80053; 85025

== ENCOUNTER → 2021-07-26 09:44 | Outpatient (CLI) | payer BC, SELFPAY | PROVIDERS: Visit Provider Orthopaedic Surgery | DX: Z01.818 Encounter for other preprocedural examination (principal); Z11.52 Encounter for screening for COVID-19; G56.03 Carpal tunnel syndrome, bilateral upper limbs | CPT/HCPCS: C9803; U0003; U0005 ==

== ENCOUNTER 2021-07-28 06:57 | Day surgery (SDC) | payer BC, SELFPAY ==
[2021-07-26 10:15] VITALS: BMI 39.6
[2021-07-28 07:52] VITALS: BP 137/85; PULSE 64; RESP 18; TEMP 36.4; O2SAT 97
--- NOTE | 2021-07-28 09:09 | P.PN_ITS ---
[facility] Anesthesia Checklist - Patient Identification Patient Identification: Arm Band - Structural Data Admitted From: Home Planned Operative Procedure/s: Carpal tunnel release Consent for Planned Operative Procedure(s) Verified: Yes - NPO Status Verified Time NPO: 00:00 - Additional verifications Anesthesia Reactions: No Hx Blood Transfusions: No Blood Transfusion Reaction: No - Airway Assessment C-Spine Mobility Assessed: Yes TMJ Mobility Assessed: Yes Dentition: Good Dentition - Neurological Assessment Level of Consciousness: Awake Hx Seizures: No Numbness or tingling in extremities: No - Anesthesia Plan Anesthesia Risk discussed: Yes Anesthesia Plan: Verified ASA Class: III Anesthesia Type: Local & MAC [facility] History I have reviewed the patient's past medical history: Yes Medical History: Reports:: Hypertension Denies:: Cancer, Diabetes Mellitus Type 1, Diabetes Mellitus Type 2, Internal Pacemaker, MRSA, Seizures *Have you ever received a pneumonia vaccine?: No *Have you received a flu vaccine this season?: No Other Medical History: Denies: Blood Transfusion Reaction Anesthesia experience/problems:: None Laterality Cases: Left: Arthroscopy Knee, Bilateral: Carpal Tunnel Release, Other Other Surgeries: Yes: Other. No: Pacemaker Amputation: No Fractures: Yes - *Social History Last grade of school completed: High school graduate Smoking Status: Current every day smoker Tobacco Type: cigarettes # Packs/Day (cigarettes): 1 Alcohol Intake: never Substance Use Type: denies use *Occupational Status:: employed Housing: house Household Members: spouse *Travel in the last 8 weeks: None Family Hx:: Heart Attack
[2021-07-28 11:23] VITALS: BP 136/75; PULSE 60; RESP 18; TEMP 36.1; O2SAT 93
[2021-07-28 11:38] VITALS: BP 117/75; PULSE 58; RESP 18; O2SAT 94
[2021-07-28 11:53] VITALS: BP 118/73; PULSE 50; RESP 18; TEMP 36.4; O2SAT 95
--- NOTE | 2021-07-28 23:13 | HMH.OPNOTE ---
Date of procedure: 07/28/21 Pre-op Diagnosis:: Recurrent carpal tunnel syndrome, right wrist Post-op Diagnosis:: Same Procedure performed:: Revision open carpal tunnel release, right wrist Surgeon:: Luciano Stewart MD Guest Advisor(s):: Arely Weiss PA-C METAL FABRICATOR HELPER:: Katharina Isaac Anesthesia: LMA Estimated blood loss (mL): 2 Clinical Note:: Patient is a 46-year-old male with recurrent right carpal tunnel syndrome with long-standing symptoms. He also has symptoms on the left side did not have any previous surgery on the left. The EMG/NCV studies confirmed moderate carpal tunnel syndrome on both sides with the left side being slightly worse. However patient is more symptomatic on the right side. Also he previously had distal radius fracture fixation which he needed revising; he also had a right carpal tunnel release at that time. He reports worsening symptoms and patient failed to respond adequately to conservative management. Therefore, a revision carpal tunnel release surgery is necessary to relieve symptoms, preserve the remaining fibers of the median nerve, improve function and decrease the pain, paresthesias and weakness and to prevent permanent nerve damage. He is a chronic smoker. 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 His medical history includes hypertension. Please refer to my office note for full details. Operative findings:: The intraoperative findings showed a lot of scarring from the previous surgery. The median nerve was seen to be very tightly compressed and hyperemic. Extensive scar tissue and adhesions were noted in the distal forearm as well as in the carpal tunnel. A lot of scar tissue was noted at the level of the the flexor retinaculum which was compressing the median nerve. The median nerve is noted to be intact. There were no space-occupying lesions within the carpal tunnel. Operative note:: On the day of the surgery the patient was met in the preoperative area. Patient was positively identified and the operative site was marked and initialed by me. A physical examination was performed and the chart was updated. I have again discussed the procedure, risks and benefits and alternatives with the patient. The complications discussed include but are not limited to- bleeding, injury to nerves, blood vessels and tendons, infection, wound dehiscence, incomplete relief/continued pain, persistent numbness, palmar hypersensitivity, pillar pain, DVT/PE, complex regional pain syndrome(CRPS), worsening of nerve damage, failure of the condition to improve, incomplete return of function, bowstringing of tendons, weakness of rn support services strength, recurrence, failure of the surgery to accomplish the desired goals, decreased use of the hand, loss of use of the arm, loss of the hand or arm, loss of life. Likely need for further surgery in the future has been discussed. I have told him that I will be going through the previous surgical incision as I do not want to make a separate incision to avoid problems with the skin necrosis given the fact that he already had multiple surgeries in this area. I have discussed the possibility of extending the incision as needed to accomplish an effective release. We have discussed how the goal of surgery is to protect the fibers which have remained healthy and hopefully reverse the symptoms of the fibers which are compromised but still recoverable. I have explained that, fibers that are permanently damaged will not recover. Patient asked appropriate questions and all have been answered by me. Patient understood the risks, agreed to proceed with surgery and no guarantees or assurances were given or implied. The patient was brought to the operating room and placed supine on the operating table. The right upper extremity was placed over a side table. All the bony prominences were well-padded. The patient had a general anesthetic administered by the mud cleaner operator. A well-padded tourniquet cuff was placed over the upper arm. The r
== END 2021-07-28 11:53 | disposition home or self-care (01) ==
LOC: OR 06:58
PROVIDERS: PCP Family Medicine; Visit Provider Orthopaedic Surgery
PROC: (CPT 64721; principal; 2021-07-28 08:45)
DX: G56.01 Carpal tunnel syndrome, right upper limb (principal)
CPT/HCPCS: 64721; 96374; J2704

== ENCOUNTER → 2021-08-23 09:58 | Outpatient (CLI) | payer BC, SELFPAY ==
[2021-08-23 10:21] LABS: Basophils # 0.1 K/mm3 (0-0.2); Basophils % 1.5 % (0.1-2.0); Eosinophils # 0.3 K/mm3 (0.0-0.4); Eosinophils % 3.8 % (0.1-12.0); Hematocrit 48.6 % (42.0-52.0); Hemoglobin 16.2 g/dL (14.1-18.0); Lymphocytes # 2.5 K/mm3 (0.7-4.5); Lymphocytes % 34.2 % (10-50); Mean Corpuscular HGB Conc 33.4 g/dL (31.8-35.4); Mean Corpuscular Hemoglobin 31.7 pg (27.0-31.2); Mean Corpuscular Volume 94.8 fl (80-94); Mean Platelet Volume 10.1 fl (7.4-10.4); Monocytes # 0.5 K/mm3 (0.1-1.0); Monocytes % 6.9 % (1.7-9.3); Neutrophils # 3.9 K/mm3 (1.8-7.8); Neutrophils % 53.6 % (37.0-80.0); Platelet Count 215 K/mm3 (142-424); Red Blood Count 5.12 M/mm3 (4.60-6.20); Red Cell Distribution Width 13.6 % (11.5-17.5); White Blood Count 7.2 K/mm3 (4.8-10.8)
[2021-08-23 11:07] LABS: Alanine Aminotransferase 35 U/L (12-78); Albumin Level 4.3 g/dl (3.5-5.0); Albumin/Globulin Ratio 1.6 (1.1-1.8); Alkaline Phosphatase 36 U/L (38-126); Anion Gap 12.7 mEq/L (5-15); Aspartate Amino Transferase 26 U/L (17-59); Bilirubin,Total 0.5 mg/dl (0.2-1.3); Blood Urea Nitrogen 12 mg/dl (9-20); Calcium 9.4 mg/dl (8.4-10.2); Carbon Dioxide 27 mmol/L (22.0-30.0); Chloride 105 mmol/L (98-107); Estimated Glomerular Filt Rate 105 ml/min (>60); GFR (African American) 126 ML/MIN (>60); Globulin 2.7 g/dL (1.3-3.2); Glucose 97 mg/dl (74-100); Potassium 4.7 mmoL/L (3.5-5.1); Sodium 140 mmol/L (136-145)
== END ==
PROVIDERS: Visit Provider Orthopaedic Surgery
DX: Z01.818 Encounter for other preprocedural examination (principal); Z11.52 Encounter for screening for COVID-19; G56.02 Carpal tunnel syndrome, left upper limb
CPT/HCPCS: 36415; 80053; 85025; C9803; U0003; U0005

== ENCOUNTER 2021-08-25 09:04 | Day surgery (SDC) | payer BC, SELFPAY ==
[2021-08-17 12:52] VITALS: BMI 39.7
[2021-08-25 09:33] VITALS: BP 147/88; PULSE 70; RESP 18; TEMP 36.7; O2SAT 97
--- NOTE | 2021-08-25 10:46 | P.PN_ITS ---
[facility] Anesthesia Checklist - Patient Identification Patient Identification: Arm Band - Structural Data Admitted From: Home Planned Operative Procedure/s: Left CTR Consent for Planned Operative Procedure(s) Verified: Yes Verified Documents: Surgical Consent, History and Physical - NPO Status Verified Time NPO: 00:00 - Additional verifications Anesthesia Reactions: No Hx Blood Transfusions: No Blood Transfusion Reaction: No - Airway Assessment C-Spine Mobility Assessed: Yes (mp2) TMJ Mobility Assessed: Yes Dentition: Good Dentition - Neurological Assessment Level of Consciousness: Awake, Alert - Anesthesia Plan Anesthesia Risk discussed: Yes Anesthesia Plan: Verified ASA Class: III Anesthesia Type: MAC w/Block (Supraclavicular block. Risks/benefits discussed. Pt verbalized understanding) [facility] History I have reviewed the patient's past medical history: Yes Medical History: Reports:: Chronic Obstructive Pulmonary Disease (COPD), Hypertension Denies:: Cancer, Diabetes Mellitus Type 1, Diabetes Mellitus Type 2, Internal Pacemaker, MRSA, Seizures *Have you ever received a pneumonia vaccine?: Yes *Have you received a flu vaccine this season?: No Other Medical History: Denies: Blood Transfusion Reaction Anesthesia experience/problems:: nac Laterality Cases: Left: Arthroscopy Knee, Right: Carpal Tunnel Release, Bilateral: Other Other Surgeries: Yes: Other. No: Pacemaker Amputation: No Fractures: Yes - *Social History Last grade of school completed: 11th or 12th Smoking Status: Current every day smoker Tobacco Type: cigarettes # Packs/Day (cigarettes): 1 Alcohol Intake: never Substance Use Type: denies use *Occupational Status:: employed Housing: house Household Members: spouse *Travel in the last 8 weeks: None Family Hx:: No significant family history
[2021-08-25 11:30] VITALS: BP 97/44; PULSE 62; RESP 18; TEMP 36.3; O2SAT 94
[2021-08-25 11:40] VITALS: BP 90/54; PULSE 56; RESP 18; O2SAT 93
[2021-08-25 11:50] VITALS: BP 101/61; PULSE 68; RESP 18; O2SAT 94
[2021-08-25 12:10] VITALS: BP 111/66; PULSE 60; RESP 18; O2SAT 95
[2021-08-25 12:27] VITALS: BP 110/68; PULSE 60; RESP 18; O2SAT 95
--- NOTE | 2021-08-25 22:51 | HMH.OPNOTE ---
Date of procedure: 08/25/21 Pre-op Diagnosis:: Carpal tunnel syndrome, left Post-op Diagnosis:: Same Procedure performed:: Open carpal tunnel release, left wrist Surgeon:: Luciano Stewart MD Studio Artist(s):: Arely Weiss PA-C DOBIE MAN:: Katharina Isaac Anesthesia: MAC, regional (Supraclavicular nerve block) Estimated blood loss (mL): 2 Clinical Note:: Patient is a 46-year-old male with left carpal tunnel syndrome with long-standing symptoms. The clinical findings are consistent with the diagnosis of carpal tunnel syndrome. Previously EMG/NCV studies confirmed carpal tunnel syndrome on both sides and he recently underwent successful revision carpal tunnel release on the right side. Patient is having significant and disabling symptoms and has failed to respond adequately to conservative management. Therefore, carpal tunnel release surgery is necessary to relieve symptoms, preserve the remaining fibers of the median nerve, improve function and decrease the pain, paresthesias and weakness and to prevent permanent nerve damage. Please refer to my office note for full details. Operative findings:: The intraoperative findings showed the median nerve to be very tightly compressed and hyperemic. The flexor retinaculum was noted to be thick and tight. There was mild synovitis in the carpal tunnel. There was no evidence of any space-occupying lesions within the carpal tunnel. Operative note:: On the day of the surgery the patient was met in the preoperative area. Patient was positively identified and the operative site was marked and initialed by me. A physical examination was performed and the chart was updated. I have again discussed the procedure, risks, benefits and alternatives with the patient. The complications discussed include but are not limited to- bleeding, injury to nerves, blood vessels and tendons, infection, wound dehiscence, incomplete relief/continued pain, persistent numbness, palmar hypersensitivity, pillar pain, DVT/PE, complex regional pain syndrome(CRPS), worsening of nerve damage, failure of the condition to improve, incomplete return of function, bowstringing of tendons, weakness of housekeeper and laundry assistant strength, recurrence, failure of the surgery to accomplish the desired goals, decreased use of the hand, loss of use of the arm, loss of the hand or arm, loss of life. Likely need for further surgery in the future has been discussed. I've indicated to the patient where the proposed incision would be made and also discussed the possibility of extending the incision if needed to accomplish an effective release. We have discussed how the goal of surgery is to protect the fibers which have remained healthy and hopefully reverse the symptoms of the fibers which are compromised but still recoverable. We have explained that, fibers that are permanently damaged will not recover. Patient asked appropriate questions and all have been answered by me. Patient wished to proceed with the surgery. Patient understood the risks, agreed to proceed with surgery and no guarantees or assurances were given or implied. The patient was brought to the operating room and placed supine on the operating table. The left upper extremity was placed over a side table. All the bony prominences were well-padded. The patient had a supraclavicular nerve block anesthesia and IV sedation administered by the production boring machine operator. A well-padded tourniquet cuff was placed over the upper arm. The left upper extremity was prepped and draped in the usual sterile fashion. A preprocedure timeout was performed as per hospital policy. Administration of prophylactic antibiotics was confirmed with the production boring machine operator. The skin incision was marked using the Carlson's landmarks, just ulnar to the thenar crease. The limb was exsanguinated with the Esmarch bandage and tourniquet was inflated to 250 mmHg. Please see nursing records for the total tourniquet time. Carlson's landmarks were utilized and a skin incision was made parall
== END 2021-08-25 12:30 | disposition home or self-care (01) ==
LOC: OR 09:05
PROVIDERS: PCP Family Medicine; Visit Provider Orthopaedic Surgery
PROC: (CPT 64721; principal; 2021-08-25 10:30)
DX: G56.02 Carpal tunnel syndrome, left upper limb (principal); Z79.899 Other long term (current) drug therapy
CPT/HCPCS: 64721; 96374; J0670; J2704

== ENCOUNTER 2021-09-01 10:00 | Outpatient (RCR) | payer BC, SELFPAY | END 2021-09-01 10:05 | disposition home or self-care (01) | LOC: OT 10:00 | PROVIDERS: PCP Family Medicine; Visit Provider Orthopaedic Surgery | DX: G56.01 Carpal tunnel syndrome, right upper limb (principal) | CPT/HCPCS: 97014; 97035; 97110; 97140; 97165; G0283 ==

== ENCOUNTER 2021-09-03 16:50 | Emergency (ER) | payer BC, SELFPAY ==
[2021-09-03 16:55] VITALS: BP 144/88; PULSE 98; RESP 20; TEMP 37.1; O2SAT 100; BMI 25.4
--- NOTE | 2021-09-03 17:33 | HMH.EDUTC ---
[facility] [place] Impression: COVID-19 virus test result unknown Disposition: Home, Self-Care Condition on Discharge: Good Instructions: Preventing the Spread of Coronavirus Discharge Instructions, DI for COVID-19 (Suspected or Confirmed ) Additional Instructions: covid swab was sent to lab, call later tomorrow for results. self isolate until test results are known to be negative No sign of a bacterial infection. Likely viral. Viruses can take 7-14 days to run their course. Nasal saline and bulb syringe or nose Lori to remove nasal drainage to help with nasal congestion. Hard to eat, drink, sleep with nasal congestion so important to keep this cleaned out. Monitor temp. Tylenol or Motrin as needed for pain or fever Encourage fluids, water, Gatorade, Powerade, Pedialyte if /toddler/child Warm salt water gargles Warm fluids Sore throat lozenges Sleep elevated Humidifier/vaporizer Follow-up immediately for new or worsening symptoms or no noticeable improvement over the next 48-72 hours. Referrals: Franklin Salgado MD [Primary Care Provider] - Forms: Work/School Release Time of Disposition: 17:36 Medical Decision Making - Sam Inquiry Pt receiving controlled substance: No Vital Signs: 09/03/21 16:55 Temperature 98.8 F Temperature Source Oral Pulse Rate [Right Brachial] 98 H Respiratory Rate 20 Blood Pressure [Right Arm] 144/88 H Blood Pressure Mean [Right Arm] 106 Blood Pressure Source [Right Arm] Automatic Cuff Blood Pressure Position [Right Arm] Sitting 02 Sat by Pulse Oximetry 100 Oxygen Delivery Method Room Air Orders (Tests/Meds): ORDERS Category Date Time Status Covid-19 Nasal PCR ([facility]) Routine Lab 09/03/21 16:[address] [facility] - General Chief complaint: [facility] Stated complaint: fever/ no taste no smell Time Seen by Provider: 09/03/21 17:33 Mode of Arrival: Ambulatory Source of Information: Patient Limitations: No Limitations Description of Symptoms (Recalled from Triage Doc. by RN): PATIENT C/O FEVER, BODY ACHES AND COUGH SINCE SUNDAY HEENT Symptoms (Recalled from RN notes): No Resp Symptoms (Recalled from RN notes): Yes Skin Symptoms (Recalled from RN notes): No MS Symptoms (Recalled from RN notes): Yes Functional Status (Recalled from RN notes): WNL - History of Present Illness Provider Complaint: 46 yr old male presents for cough,fever, body aches and loss or taste and smell since sunday - Related Data Home Medications Medication Instructions Recorded Confirmed amlodipine 5 mg tablet 5 mg PO DAILY 06/14/21 08/25/21 diclofenac sodium 50 mg 75 mg PO DAILY 06/14/21 08/25/21 tablet,delayed release Albuterol Sulfate [Proventil Hfa] 6.7 gm IH DAILY 07/26/21 08/25/21 Fluticasone/Umeclidin/Vilanter 1 each IH DAILY 08/17/21 08/25/21 [Trelegy Ellipta 100-62.5-25] Losartan/Hydrochlorothiazide 1 each PO DAILY 08/17/21 08/25/21 [Losartan-Hctz 100-12.5 mg Tab] Previous Rx's Medication Instructions Recorded hydrocodone 5 mg-acetaminophen 325 1 tab PO Q6H PRN #10 tab 08/25/21 mg tablet Allergies Allergy/AdvReac Type Severity Reaction Status Date / Time codeine [CODEINE] Allergy Mild Hives Verified 08/25/21 09:31 - Worker's Comp Is this a Worker's Comp case?: No [facility] History - Hepatitis A Screen Drug use history?: No High risk sexual behaviors?: No History of sexually transmitted infection?: No Currently employed?: No Childcare worker?: No Do you have indoor plumbing?: Yes Do you have electricity?: Yes Attestation statement:: This patient has been screened for Hepatitis A risk factors. I have reviewed the patient's past medical history: Yes Medical History: Reports:: Chronic Obstructive Pulmonary Disease (COPD), Hypertension Denies:: Cancer, Diabetes Mellitus Type 1, Diabetes Mellitus Type 2, Internal Pacemaker, MRSA, Seizures Other Medical History: Denies: Blood Transfusion Reaction Laterality Cases: Left: Ar
[2021-09-03 17:36] VITALS: BP 144/88; PULSE 98; RESP 20; TEMP 37.1; O2SAT 100
== END 2021-09-03 17:46 | disposition home or self-care (01) ==
PROVIDERS: Emergency Provider Nurse Practitioner Family; PCP Family Medicine
DX: U07.1 COVID-19 (principal); J44.9 Chronic obstructive pulmonary disease, unspecified; I10 Essential (primary) hypertension; F17.210 Nicotine dependence, cigarettes, uncomplicated
CPT/HCPCS: 99202; C9803; G0463; U0003; U0005

== ENCOUNTER → 2021-11-07 15:04 | Outpatient (CLI) | payer BC, SELFPAY ==
[2021-11-07 15:57] LABS: Basophils # 0.1 K/mm3 (0-0.2); Basophils % 1.4 % (0.1-2.0); Eosinophils # 0.2 K/mm3 (0.0-0.4); Eosinophils % 2.3 % (0.1-12.0); Hematocrit 46.5 % (42.0-52.0); Hemoglobin 15.3 g/dL (14.1-18.0); Lymphocytes % 31.2 % (10-50); Mean Corpuscular HGB Conc 32.8 g/dL (31.8-35.4); Mean Corpuscular Volume 97.4 fl (80-94); Mean Platelet Volume 9.3 fl (7.4-10.4); Monocytes # 0.5 K/mm3 (0.1-1.0); Monocytes % 5.2 % (1.7-9.3); Neutrophils # 5.7 K/mm3 (1.8-7.8); Platelet Count 261 K/mm3 (142-424); Red Blood Count 4.78 M/mm3 (4.60-6.20); Red Cell Distribution Width 14.2 % (11.5-17.5); White Blood Count 9.5 K/mm3 (4.8-10.8)
[2021-11-07 16:13] LABS: D-Dimer 0.54 ug/mL (0.0-0.5)
[2021-11-07 16:43] LABS: C-Reactive Protein 2.4 mg/L (0-4)
[2021-11-09 08:14] LABS: Alpha-1-Antitrypsin 153 mg/dL (101-187)
[2021-11-12 04:09] LABS: D001-IgE D pteronyssinus <0.10 kU/L (Class 0); D002-IgE D farinae <0.10 kU/L (Class 0); E001-IgE Cat Dander <0.10 kU/L (Class 0); E005-IgE Dog Dander <0.10 kU/L (Class 0); E072-IgE Mouse Urine <0.10 kU/L (Class 0); G002-IgE Bermuda Grass <0.10 kU/L (Class 0); G006-IgE Timothy Grass <0.10 kU/L (Class 0); I006-IgE Cockroach, German <0.10 kU/L (Class 0); Immunoglobulin E, Total 185 IU/mL (6-495); M001-IgE Penicillium chrysogen <0.10 kU/L (Class 0); M002-IgE Cladosporium herbarum <0.10 kU/L (Class 0); M003-IgE Aspergillus fumigatus <0.10 kU/L (Class 0); M006-IgE Alternaria alternata <0.10 kU/L (Class 0); T001-IgE Maple/Box Elder <0.10 kU/L (Class 0); T003-IgE Common Silver Birch <0.10 kU/L (Class 0); T006-IgE Cedar, Mountain <0.10 kU/L (Class 0); T007-IgE Oak, White <0.10 kU/L (Class 0); T008-IgE Elm, American 0.11 kU/L (Class 0/I); T010-IgE Walnut <0.10 kU/L (Class 0); T011-IgE Maple Leaf Sycamore <0.10 kU/L (Class 0); T014-IgE Cottonwood <0.10 kU/L (Class 0); T015-IgE Ash, White <0.10 kU/L (Class 0); T022-IgE Pecan, Hickory 0.15 kU/L (Class 0/I); T070-IgE White Mulberry <0.10 kU/L (Class 0); W011-IgE Thistle, Russian <0.10 kU/L (Class 0); W014-IgE Pigweed, Common <0.10 kU/L (Class 0); W018-IgE Sheep Sorrel <0.10 kU/L (Class 0)
== END ==
LOC: LAB 15:05
PROVIDERS: PCP Family Medicine; Visit Provider Internal Medicine Pulmonary Disease
DX: R06.00 Dyspnea, unspecified (principal); J45.909 Unspecified asthma, uncomplicated; J44.9 Chronic obstructive pulmonary disease, unspecified
CPT/HCPCS: 36415; 82103; 82785; 85025; 85378; 86003; 86140

== ENCOUNTER → 2021-11-15 13:39 | Outpatient (CLI) | payer BC, SELFPAY ==
--- NOTE | 2021-11-15 13:41 | CA_ITS ---
APPROVED REPORT EXAM: Comprehensive 2D, Doppler, and color-flow Echocardiogram Waste Handling Technician: Christin Clinton, RCS, RVS Ht: 6 ft 0 in Wt: 308lbs BSA: 2.56 BP: 167/81 mmHg Indications: COPD,Hx-COVID 08/2021, Shortness of Breath, Obesity, Hypertension/HDD, Smoker 2D Dimensions LVDd 4.94 cm LVEF (Visual) 65.20 % LVDs 3.17 cm LA Volume 57.50 mL Aortic Root 2.77 cm LA Volume Index 22.50 mL/m2 (M/F) 16-34 Left Atrium 3.99 cm LVOT 1.89 cm (M/F) 1.5-2.5 M-Mode Dimensions RVDd 2.34 cm (0.9-2.6) LA Diam 4.07 cm (1.9-4.0) LVDd 5.14 cm (3.5-5.7) Ao Diam 3.19 cm (2.0-3.7) LVDs 3.23 cm (3.5-5.7) IVSd 1.15 cm (0.6-1.1) PWd 1.02 cm (0.6-1.1) EF (Teich) 67.80% EPSs 0.72 cm FS 38.00% EDV (Teich) 130.10 mL TAPSE 3.46 (<1.7) ESV (Teich) 41.90 mL LV Diastology E Decel Time 250.00 (160-240 msec) E/A Ratio 1.12 MED E' 5.90 (< 7 cm/sec) MED A' 9.40 cm/s E'/MED E' Ratio 17.41 (>14) LAT E' 8.50 (<10 cm/sec) LAT A' 12.10 cm/s E/LAT E' Ratio 12.08 (>14) Aortic Valve LVOT Max 122.00 (70-110 cm/s) LVOT VTI 24.48 cm AoV Peak Con. 170.00 (50-130 cm/s) AO Peak GR. 11.60 mmHg AO Mean GR. 6.80 (<5 mmHg) AO VTI 37.85 (18-25 cm) ELIE (VTI) 1.81 (2.5-4.5 cm2) Mitral Valve MV A Velocity 91.00 (40-130 cm/s) E/A Ratio 1.12 MV Decel. Time 250.00 (160-240 ms) MV Mean Gr. 1.90 (<2mmHg) Pulmonary Valve PV Peak Velocity 89.00 (50-150 cm/s) OR End VMAX 178.00 cm/s Tricuspid Valve TR P. Velocity 178.00 cm/s RAP Estimate 10.00 mmHg RVSP 22.70 mmHg Left Ventricle Left atrium is mildly enlarged, left ventricle is normal size, mild concentric left ventricular hypertrophy, visually estimated ejection fraction 55% with no regional wall motion abnormality, grade 1 diastolic dysfunction seen without tissue Doppler evidence of raise left atrial pressure. Right Ventricle Right atrium and right ventricle are normal size and contractility. Aortic Valve Aortic valve is minimally thickened and fibrosed, there is no aortic stenosis or aortic insufficiency. Mitral Valve Mitral valve grossly normal, there is trace mitral regurgitation. Tricuspid Valve Tricuspid valve grossly normal, there is trace tricuspid regurgitation, tricuspid rotation jet velocity is inadequate for calculation of the right ventricular systolic pressure. Pulmonic Valve Pulmonic valve is poorly visualized. Great Vessels Aortic root is normal size. Inferior vena cava is poorly visualized. Pericardium No significant pericardial effusion noted. Conclusion 1. Mildly enlarged left atrium, normal left ventricular size, mild concentric left ventricular hypertrophy, visually estimated ejection fraction 55% with no regional wall motion abnormality, grade 1 diastolic dysfunction without tissue Doppler evidence of raise left atrial pressure. 2. Trace mitral and tricuspid regurgitation. 3. No significant pericardial effusion. 4. Inferior vena cava is poorly visualized. Electronically signed by : John Johnson MD 11/15/2021 20:28:06
[2021-11-15 15:35] VITALS: PULSE 74; PULSE 80
--- NOTE | 2021-11-15 15:55 | CT_ITS ---
PROCEDURE INFORMATION: Exam: CT Chest Without Contrast; Diagnostic; High Resolution Exam date and time: 11/15/2021 3:55 PM Age: 46 years old Clinical indication: Shortness of breath; Patient HX: HX of covid, cough; Additional info: SOA TECHNIQUE: Imaging protocol: Diagnostic computed tomography of the chest without contrast. Exam was performed with high resolution protocol. Radiation optimization: All CT scans at this facility use at least one of these dose optimization techniques: automated exposure control; mA and/or kV adjustment per patient size (includes targeted exams where dose is matched to clinical indication); or iterative reconstruction. COMPARISON: CR XR CHEST 2V 07/25/2021 2:00 PM FINDINGS: Lungs: Small focus of tree-in-bud nodularity in the right upper lobe. Calcified left lower lobe granuloma. Pleural space: Unremarkable. No pneumothorax. No pleural effusion. Heart: Unremarkable. No cardiomegaly. No pericardial effusion. Aorta: Unremarkable. No aortic aneurysm. Lymph nodes: Calcified hilar and mediastinal lymph nodes. Spleen: Peripherally calcified cystic lesion in the spleen measuring up to 4.7 cm likely reflects a pseudocyst. This was reportedly present on CT abdomen pelvis from 07/24/2020. Bones/joints: Unremarkable. No acute fracture. Soft tissues: Unremarkable. IMPRESSION: Small amount of tree-in-bud nodularity in the right upper lobe may reflect aspiration or atypical infection.
== END ==
LOC: RT 13:41
PROVIDERS: PCP Family Medicine; Visit Provider Internal Medicine Pulmonary Disease
DX: R06.00 Dyspnea, unspecified (principal); R06.02 Shortness of breath; I51.7 Cardiomegaly
CPT/HCPCS: 71250; 93306; 94060; 94618; 94640; 94727; 94729; 94762

== ENCOUNTER → 2021-12-01 16:07 | Outpatient (CLI) | payer BC, SELFPAY ==
[2021-12-05 17:09] LABS: QuantiFERON-TB Gold Plus Negative (Negative)
[2021-12-07 18:10] LABS: Aspergillus flavus Negative (Neg:<1:1); Aspergillus fumigatus Negative (Neg:<1:1); Aspergillus niger Negative (Neg:<1:1); Blastomyces Antibody Negative (Neg:<1:1)
== END ==
PROVIDERS: PCP Family Medicine; Visit Provider Internal Medicine Pulmonary Disease
DX: J84.10 Pulmonary fibrosis, unspecified (principal)
CPT/HCPCS: 86480; 86606; 86612; 87116; 87186; 87206

== ENCOUNTER → 2021-12-02 16:06 | Outpatient (CLI) | payer BC, SELFPAY | PROVIDERS: PCP Family Medicine; Visit Provider Internal Medicine Pulmonary Disease | DX: R06.00 Dyspnea, unspecified (principal); J84.10 Pulmonary fibrosis, unspecified | CPT/HCPCS: 87070; 87205 ==

== ENCOUNTER → 2021-12-08 14:49 | Outpatient (CLI) | payer BC, SELFPAY | LOC: RT 14:49 | PROVIDERS: PCP Family Medicine; Visit Provider Internal Medicine Pulmonary Disease | DX: R06.00 Dyspnea, unspecified (principal) | CPT/HCPCS: 94070; 95070; J7674 ==

== ENCOUNTER → 2022-02-07 20:08 | Outpatient (CLI) | payer BC, SELFPAY | LOC: SL 20:09 | PROVIDERS: PCP Nurse Practitioner Family; Visit Provider Nurse Practitioner Family | DX: G47.33 Obstructive sleep apnea (adult) (pediatric) (principal); G47.34 Idiopathic sleep related nonobstructive alveolar hypoventilation; I10 Essential (primary) hypertension; I51.89 Other ill-defined heart diseases; E66.9 Obesity, unspecified; Z68.39 Body mass index [BMI] 39.0-39.9, adult | CPT/HCPCS: 95811 ==

== ENCOUNTER → 2022-11-16 15:54 | Outpatient (CLI) | payer BC, SELFPAY ==
--- NOTE | 2022-11-16 16:01 | XR_ITS ---
FINAL REPORT CLINICAL HISTORY: Arthritis FINDINGS: RIGHT WRIST Three views demonstrate no acute fracture or dislocation. Patient is status post ORIF of the distal radius. There is an old ulnar styloid process fracture. The visualized joint spaces are normally aligned. The soft tissues are unremarkable. IMPRESSION: No acute bony abnormality. Reviewed, Interpreted and Dictated by Bossman Rodriguez MD Transcribed by Kinza Lester Authenticated and [facility]
--- NOTE | 2022-11-16 16:01 | XR_ITS ---
FINAL REPORT CLINICAL HISTORY: arthritis FINDINGS: LEFT WRIST Three views demonstrate no acute fracture or dislocation. There is ORIF of the distal radius. An old distal radial fracture is noted. The visualized joint spaces are normally aligned. The soft tissues are unremarkable. IMPRESSION: No acute bony abnormality. Reviewed, Interpreted and Dictated by Bossman Rodriguez MD Transcribed by Kinza Lester Authenticated and [facility]
== END ==
LOC: RAD 15:56
PROVIDERS: PCP Nurse Practitioner Family; Visit Provider Nurse Practitioner Family
DX: M19.032 Primary osteoarthritis, left wrist (principal); M19.031 Primary osteoarthritis, right wrist
CPT/HCPCS: 73110

== ENCOUNTER → 2023-08-21 08:41 | Outpatient (CLI) | payer BC, SELFPAY ==
--- NOTE | 2023-08-21 08:45 | CA_ITS ---
FINAL REPORT TECHNIQUE: Grayscale, color Doppler and duplex Doppler ultrasound of the kidneys, aorta and renal arteries was performed. Multiple velocities were measured. CLINICAL HISTORY: HTN COMPARISON: None FINDINGS: Aorta velocity: 90 cm/sec Right kidney: 12.8 cm. No evidence of hydronephrosis or mass. Right intrarenal RI: 0.68 Right renal artery velocity: 178 cm/sec. Right RAR (Renal artery-Aortic Ratio): 1.9 Left Kidney: 12.5 cm. No evidence of hydronephrosis or mass. Left intrarenal RI: 0.6 Left renal artery velocity: 195 cm/sec. Left RAR (Renal Artery-Aortic Ratio): 2.1 IMPRESSION: No evidence of stenosis in the right renal artery. Less than 60% luminal diameter stenosis present in the left renal artery. CT angiogram or postcontrast MR angiogram would be more sensitive for evaluation of possible renal artery stenosis. Reviewed, Interpreted and Dictated by William Diego III, MD Transcribed by Beverly Mott Authenticated and [facility]
== END ==
LOC: RT 08:42
PROVIDERS: PCP Nurse Practitioner Family; Visit Provider Nurse Practitioner Family
DX: I10 Essential (primary) hypertension (principal); R06.09 Other forms of dyspnea; J44.9 Chronic obstructive pulmonary disease, unspecified; R94.31 Abnormal electrocardiogram [ECG] [EKG]; G47.33 Obstructive sleep apnea (adult) (pediatric); F17.200 Nicotine dependence, unspecified, uncomplicated; E66.9 Obesity, unspecified; Z68.38 Body mass index [BMI] 38.0-38.9, adult
CPT/HCPCS: 93976

== ENCOUNTER → 2023-08-28 12:32 | Outpatient (CLI) | payer BC, SELFPAY ==
--- NOTE | 2023-08-28 12:33 | US_ITS ---
FINAL REPORT TECHNIQUE: Ultrasound images of the kidneys and bladder were obtained. CLINICAL HISTORY: Hypertension FINDINGS: The right kidney measures 12.9 cm in length. It is normal in echogenicity. There is no hydronephrosis, mass or stone. The left kidney measures 11.8 cm in length. It is normal in echogenicity. There is no hydronephrosis, mass or stone. The spleen is normal at 10.4 cm. IMPRESSION: Morphologically normal kidneys bilaterally. Reviewed, Interpreted and Dictated by Riri Keller MD Transcribed by Nkechi Mccann Authenticated and [facility]
--- NOTE | 2023-08-28 13:03 | CA_ITS ---
APPROVED REPORT EXAM: Comprehensive 2D, Doppler, and color-flow Echocardiogram Security Guard Supervisor: Marleni Simpson CRT Ht: 6 ft 0 in Wt: 278lbs BSA: 2.45 BP: 133/79 mmHg Indications: Abnormal ECG, COPD, Hypertension/HDD, JOSH, COVID 09/11, JOSH 2D Dimensions LVOT 2.09 cm (M/F) 1.5-2.5 LA Volume 43.10 mL LA Volume Index 17.59 mL/m2 (M/F) 16-34 M-Mode Dimensions RVDd 2.61 cm (0.9-2.6) LA Diam 3.41 cm (1.9-4.0) LVDd 5.10 cm (3.5-5.7) Ao Diam 4.24 cm (2.0-3.7) LVDs 3.82 cm (3.5-5.7) IVSd 1.57 cm (0.6-1.1) PWd 0.84 cm (0.6-1.1) EF (Teich) 49.40% FS 25.10% EDV (Teich) 123.80 mL TAPSE 2.59 (<1.7) ESV (Teich) 62.70 mL LV Diastology E Decel Time 187.00 (160-240 msec) E/A Ratio 0.85 MED E' 3.60 (< 7 cm/sec) MED A' 8.40 cm/s E'/MED E' Ratio 22.17 (>14) LAT E' 10.30 (<10 cm/sec) LAT A' 13.00 cm/s E/LAT E' Ratio 7.75 (>14) Aortic Valve LVOT Max 144.00 (70-110 cm/s) LVOT VTI 28.98 cm AoV Peak Con. 207.00 (50-130 cm/s) AO Peak GR. 17.20 mmHg AO Mean GR. 7.90 (<5 mmHg) AO VTI 34.24 (18-25 cm) ELIE (VTI) 2.90 (2.5-4.5 cm2) Mitral Valve MV A Velocity 94.00 (40-130 cm/s) E/A Ratio 0.85 MV Decel. Time 187.00 (160-240 ms) Pulmonary Valve PV Peak Velocity 112.00 (50-150 cm/s) Tricuspid Valve TR P. Velocity 164.00 cm/s RAP Estimate 10.00 mmHg RVSP 20.70 mmHg Left Ventricle The left ventricle is normal size. The left ventricular systolic function is normal. The left ventricular ejection fraction is within the normal range. There is normal left ventricular wall thickness. There is normal LV segmental wall motion. The left ventricular diastolic function is normal. LVEF is 60%. Right Ventricle The right ventricle is normal size. The right ventricular systolic function is normal. Atria The left atrium size is normal. The right atrium size is normal. A left to right interatrial shunt is possibly present on color Doppler. Aortic Valve The aortic valve opens well. There is no aortic valvular stenosis. No aortic regurgitation is present. Mitral Valve The mitral valve is normal in structure. No evidence of mitral valve stenosis. There is no mitral valve regurgitation noted. Tricuspid Valve The tricuspid valve leaflets are thin and pliable. There is no tricuspid valve stenosis. Trace tricuspid regurgitation. RVSP is normal. Pulmonic Valve The pulmonary valve is normal in structure. Trace pulmonic regurgitation. Great Vessels The aortic root is normal in size. The ascending aorta is normal in size. IVC is normal in size and collapses >50% with inspiration. Pericardium There is no pericardial effusion. Other Information Study Quality: Fair Conclusion Normal biventricular systolic function. No significant valvular stenosis or regurgitation. Possible left to right interatrial shunt (on color Doppler). Electronically signed by : Lynn Mcleod MD 08/31/2023 19:50:34
== END ==
LOC: RAD 12:33
PROVIDERS: PCP Nurse Practitioner Family; Visit Provider Nurse Practitioner Family
DX: I10 Essential (primary) hypertension (principal); R06.09 Other forms of dyspnea; R94.31 Abnormal electrocardiogram [ECG] [EKG]; I51.89 Other ill-defined heart diseases; G47.33 Obstructive sleep apnea (adult) (pediatric); J44.9 Chronic obstructive pulmonary disease, unspecified; F17.200 Nicotine dependence, unspecified, uncomplicated; E66.9 Obesity, unspecified; Z68.38 Body mass index [BMI] 38.0-38.9, adult
CPT/HCPCS: 76770; 93306

== ENCOUNTER 2023-09-24 07:40 | Day surgery (SDC) | payer BC, SELFPAY ==
[2023-09-21 11:45] VITALS: BMI 39.7
--- NOTE | 2023-09-24 07:55 | ECG_ITS ---
APPROVED REPORT Exam: Resting ECG HR:61 bpm ECG Measurements Heart Rate 61 AXES HI 158 P 29 QRSd 103 QRS 105 QT 414 T 29 QTc 418 Conclusion SINUS RHYTHM POSSIBLE RIGHT VENTRICULAR HYPERTROPHY [SOME/ALL OF: PROMINENT R IN V1, LATE TRANSITION, RAD, RAQUEL, SSS] ABNORMAL ECG UNCONFIRMED REPORT Electronically signed by : Franklin Banegas MD 09/24/2023 17:35:47
[2023-09-24 07:58] VITALS: BP 144/70; PULSE 68; RESP 18; TEMP 36.3; O2SAT 97
[2023-09-24 08:21] LABS: Basophils # 0.1 K/mm3 (0-0.2); Eosinophils # 0.3 K/mm3 (0.0-0.4); Eosinophils % 3.5 % (0.1-12.0); Hemoglobin 15.9 g/dL (14.1-18.0); Lymphocytes # 2.9 K/mm3 (0.7-4.5); Lymphocytes % 39.1 % (10-50); Mean Corpuscular HGB Conc 33.7 g/dL (31.8-35.4); Mean Corpuscular Hemoglobin 31.7 pg (27.0-31.2); Mean Platelet Volume 10.2 fl (7.4-10.4); Monocytes # 0.5 K/mm3 (0.1-1.0); Monocytes % 7.2 % (1.7-9.3); Neutrophils # 3.6 K/mm3 (1.8-7.8); Neutrophils % 49.1 % (37.0-80.0); Platelet Count 181 K/mm3 (142-424); Red Cell Distribution Width 13.3 % (11.5-17.5); White Blood Count 7.3 K/mm3 (4.8-10.8)
[2023-09-24 08:28] LABS: Chloride 104 mmol/L (98-107); Sodium 137 mmol/L (136-145)
[2023-09-24 08:29] LABS: Potassium 4.5 mmoL/L (3.5-5.1)
--- NOTE | 2023-09-24 08:29 | P.PNANES_ITS ---
[facility] Disclaimer: The information contained in this section may have been updated after the patient was seen, as this information can be updated by other users. Medical History Abnormal computerized axial tomography of chest Abnormal electrocardiography Carpal tunnel syndrome on both sides COPD (chronic obstructive pulmonary disease) Diastolic dysfunction Dyspnea Dyspnea on exertion Family history of asthma Family history of heart disease History of 2019 novel coronavirus disease (COVID-19) History of asthma Left to right cardiac shunt Moderate persistent asthma Obesity JOSH (obstructive sleep apnea) Pulmonary emphysema Restrictive lung disease Seasonal allergies Smoking greater than 30 pack years Tobacco abuse disorder Tobacco dependence syndrome Surgical History History of arthroscopic knee surgery History of carpal tunnel release Family History Other Diabetes Heart attack Hypertension Stroke Social History Smoking Status: Current every day smoker tobacco type: cigarettes packs per day: 1 second hand exposure: Yes alcohol intake: never substance use type: former substance user and marijuana current occupational status: employed Travel in the last 8 weeks: None household members: spouse and children housing: house marital status: current occupation: factory current occupational exposures/hazards: No caffeine: Yes [facility] Anesthesia Checklist Patient Identification Patient Identification: Verbal (Name & ) Structural Data Admitted From: Home Planned Operative Procedure/s: RAFAEL Consent for Planned Operative Procedure(s) Verified: Yes NPO Status Verified Time NPO: 00:00 Additional verifications Anesthesia Reactions: No Hx Blood Transfusions: No Blood Transfusion Reaction: No Airway Assessment Mallampati Score:: Class II C-Spine Mobility Assessed: Yes TMJ Mobility Assessed: Yes Dentition: Good Dentition Neurological Assessment Level of Consciousness: Awake, Alert and Appropriate Anesthesia Plan Anesthesia Risk discussed: Yes Anesthesia Plan: Verified ASA Class: II Anesthesia Type: MAC
[2023-09-24 08:31] LABS: Blood Urea Nitrogen 17 mg/dl (9-20); Creatinine Clearance Estimated 191 mL/min (50-200); Estimated Glomerular Filt Rate 90 ml/min (>60); GFR (African American) 109 ML/MIN (>60)
[2023-09-24 08:32] LABS: Anion Gap 7.5 mEq/L (5-15); Calcium 8.7 mg/dl (8.4-10.2); Carbon Dioxide 30 mmol/L (22.0-30.0); Glucose 100 mg/dl (74-100); INR 0.94 (0.9-1.1); Prothrombin Time 10.2 seconds (10.1-12.5)
--- NOTE | 2023-09-24 08:36 | CA_ITS ---
APPROVED REPORT EXAM: Comprehensive 2D, Doppler, and color-flow Echocardiogram [employer] Teacher: Antoinette MartinezGOKUL Ht: 6 ft 0 in Wt: 281lbs BSA: 2.46 BP: 132/75 mmHg Indications: POSSIBLE, LT TO RT SHUNT ON TTE,SMOKER,COPD,MORRIS,JOSH Procedure After obtaining informed consent, patient underwent transesophageal echo in the [facility]. Type of Sedation : MAC Sedation was administered by Chuckie Mcgee C.R.N.A. Sedation start time: 09:35 Case end Time: 09:50 Sedation was achieved intravenously with: Propofol (350) Transesophageal probe was inserted and advanced into esophagus without difficulty by Dr. Lynn Mcleod. Echo enhancement agent administered: Agitated Saline The RAFAEL was performed without complications. Throughout the procedure, the blood pressure, pulse oximetry, cardiac rhythm, and rate were monitored. The patient tolerated the procedure without adverse effects. Recovery from conscious sedation was uneventful and vital signs were stable. Left Ventricle The left ventricle is normal size. The left ventricular systolic function is normal. The left ventricular ejection fraction is within the normal range. There is normal left ventricular wall thickness. There is normal LV segmental wall motion. The left ventricular diastolic function is normal. LVEF is 55%. Right Ventricle The right ventricle is normal size. The right ventricular systolic function is normal. Atria The left atrium size is normal. There is no thrombus suspected in the left atrium or the left atrial appendage. The right atrium size is normal. Interatrial septum is intact without evidence of ASD or PFO. Saline bubble contrast intravenous injection does not demonstrate PFO. Aortic Valve The aortic valve is normal in structure. There is no aortic valvular stenosis. No aortic regurgitation is present. Mitral Valve The mitral valve is normal in structure. No evidence of mitral valve stenosis. Trace mitral regurgitation. Tricuspid Valve The tricuspid valve leaflets are thin and pliable. Trace tricuspid regurgitation. There is insufficient TR jet to estimate RVSP. Pulmonic Valve The pulmonary valve is normal in structure. Trace pulmonic regurgitation. Great Vessels The aortic root is normal in size. The ascending aorta is normal in size. Pericardium There is no pericardial effusion. Other Information Study Quality: Adequate Conclusion Normal biventricular systolic function. No significant valvular stenosis or regurgitation. Interatrial septum is intact without evidence of ASD or PFO. Saline bubble contrast intravenous injection does not demonstrate PFO. Electronically signed by : Lynn Mcleod MD 09/28/2023 22:13:05
[2023-09-24 09:37] VITALS: O2SAT 96
[2023-09-24 09:52] VITALS: BP 118/75; PULSE 53; RESP 18; TEMP 36.2; O2SAT 92
[2023-09-24 10:03] VITALS: BP 104/67; PULSE 62; RESP 18; O2SAT 96
--- NOTE | 2023-09-24 10:05 | SUR.PHASEII ---
1000-spoke with Dr. Mcleod face to face, ok for pt to continue home meds and okay to discharge pt as soon as vitals are stable and drinking ok.
[2023-09-24 10:13] VITALS: BP 122/72; PULSE 49; RESP 18; O2SAT 96
[2023-09-24 10:24] VITALS: BP 111/76; PULSE 51; RESP 18; O2SAT 95
--- NOTE | 2023-09-24 10:34 | SUR.PHASEII ---
1025 Pt VSS, denies throat pain or any c/o.
== END 2023-09-24 10:30 | disposition home or self-care (01) ==
PROVIDERS: PCP Nurse Practitioner Family; Visit Provider Internal Medicine
DX: R94.31 Abnormal electrocardiogram [ECG] [EKG] (principal); F17.210 Nicotine dependence, cigarettes, uncomplicated; I10 Essential (primary) hypertension; Z79.899 Other long term (current) drug therapy; J44.9 Chronic obstructive pulmonary disease, unspecified
CPT/HCPCS: 80048; 85025; 85610; 93005; 93270; 93312; 93319

== ENCOUNTER 2024-08-14 21:11 | Emergency (ER) | payer OTHER, SELFPAY ==
[2024-08-14 21:13] VITALS: BP 120/89; PULSE 76; RESP 18; TEMP 36.8; O2SAT 96; BMI 40.0
[2024-08-14 21:20] VITALS: BP 120/89; PULSE 78; O2SAT 97
--- NOTE | 2024-08-14 21:20 | ED_ITS ---
Discharge Plan Disposition Patient Disposition: Home, Self-Care Condition: Good Prescriptions Prescriptions: New methocarbamol 750 mg tablet 750 mg PO Q6H PRN (Reason: muscle spasm) Qty: 20 0RF prednisone 50 mg tablet 50 mg PO DAILY 5 Days Qty: 5 0RF lidocaine 5 % adhesive patch,medicated 1 patch topical DAILY Qty: 30 0RF Rx Instructions: leave on most painful area for up to 12 hrs No Action Trelegy Ellipta 200-62.5-25 mcg blister with device 1 inh INHALATION DAILY 90 Days Qty: 90 3RF albuterol sulfate 90 mcg/actuation HFA aerosol inhaler 1 inh INHALATION QID PRN (Reason: shortness of breath or wheezing) Qty: 8.5 12RF pravastatin 20 mg tablet 20 mg PO DAILY metoprolol succinate [Toprol XL] 25 mg tablet extended release 24 hr 25 mg PO DAILY Qty: 30 5RF losartan-hydrochlorothiazide 100-12.5 mg tablet See Rx Instructions .ROUTE .COMPLEX Qty: 90 3RF Dose Instruction: TAKE 1 TABLET BY MOUTH DAILY FOR BLOOD PRESSURE Rx Instructions: TAKE 1 TABLET BY MOUTH DAILY FOR BLOOD PRESSURE Referrals Follow up/Referrals: Ameya Noland APRN [Primary Care Provider] - See instructions Activity Restrictions/Add. Instructions Additional Instructions/Restrictions: Please follow-up with your PCP within 48 hours for recheck. You likely need an MRI and/or a spine surgeon evaluation. I have sent medication into your pharmacy. Please return to the emergency department for any muscle weakness inability to walk loss of control of bowel or bladder function. Clinical Impressions Clinical Impression: Acute low back pain Qualifiers: Back pain laterality: midline Sciatica presence: with sciatica Sciatica laterality: bilateral sciatica Qualified Code(s): M54.42 - Lumbago with sciatica, left side Stand Alone Forms Stand Alone Forms: Work/School Release Instructions Patient Instructions: DI for Low Back Pain Print Language Print Language: Swedish Discharge ED Provider: Omkar Castellon General Adult HPI <AVTAR Harmon - Last Filed: 08/14/24 23:17> General Chief complaint: Back Pain/Injury Stated complaint: Lower back and groin pain Time Seen by Provider: 08/14/24 21:20 History of Present Illness HPI narrative: Patient presents for low back pain. Patient reports that he has had central lumbar back pain with pain radiating to his bilateral groins. He denies any numbness tingling loss of bowel or bladder function. He denies any known trauma. He has no previous history. Related Data Home Medications ?Medication ?Instructions ?Recorded ?Confirmed pravastatin 20 mg tablet 20 mg PO DAILY 03/01/22 10/11/23 Previous Rx's ?Medication ?Instructions ?Recorded albuterol sulfate 90 mcg/actuation 1 inh inhalation QID PRN shortness 11/30/21 aerosol inhaler of breath or wheezing #8.5 grams fluticasone fur. 200 mcg-umeclid 1 inh inhalation DAILY 90 days #90 11/30/21 62.5 mcg-vilant 25 mcg ea inhalat.powder (Trelegy Ellipta) metoprolol succinate 25 mg 25 mg PO DAILY #30 tabs 10/11/23 tablet,extended release 24 hr (Toprol XL) losartan 100 See Rx Instructions .Route 05/26/24 mg-hydrochlorothiazide 12.5 mg .COMPLEX #90 tabs tablet lidocaine 5 % topical patch 1 patch topical DAILY #30 ea 08/14/24 methocarbamol 750 mg tablet 750 mg PO Q6H PRN muscle spasm #20 08/14/24 tabs prednisone 50 mg tablet 50 mg PO DAILY 5 days #5 tabs 08/14/24 Allergies Allergy/AdvReac Type Severity Reaction Status Date / Time codeine [CODEINE] Allergy Mild Hives Verified 10/11/23 13:49 [facility] <AVTAR Harmon - Last Filed: 08/14/24 23:17> [facility] Disclaimer: The information contained in this section may have been updated after the patient was seen, as this information can be updated by other users. Medical History Abnormal computerized axial tomography of chest Abnormal electrocardiography Carpal tunnel syndrome on both sides COPD (chronic obstructive pulmonary disease) Diastolic dysfunction Dyspnea Dyspnea on exertion Family history of asthma Family history of heart disease History of 2019 novel coronavirus disease (COVID-19) History of asthma Left to right cardiac shunt Moderate persistent asthma Obesity JOSH (obstructive sleep apnea) Pulmonary emphysema Restrictive lung disease Seasonal allergies Smoking greater than 30 pack years Tobacco abuse disorder Tobacco dependence syndrome Surgical History History of arthroscopic knee surgery History of carpal tunnel release Family History Other Diabetes Heart attack Hypertension Stroke Social History Smoking Status: Current every day smoker tobacco type: cigarettes packs per day: 1 second hand exposure: Yes alcohol intake: never substance use type: former substance user and marijuana current occupational status: employed Travel in the last 8 weeks: None household members: spouse and children housing: house marital status: current occupation: factory current occupational exposures/hazards: No caffeine: Yes Other Medical History Have you received the Flu Vaccine for this season: No Have you received the Pneumonia Vaccine: No <AVTAR Harmon - Last Filed: 08/14/24 23:17> ROS Obtained: Yes Systems reviewed as appropriate & no additional complaints except as documented Physical Exam <AVTAR Harmon - Last Filed: 08/14/24 23:17> General General appearance: alert and in no apparent distress Respiratory Respiratory exam: Present normal lung sounds bilaterally Cardiovascular Cardiovascular exam: Present regular rate Neurological Exam Neurological exam: Present alert and oriented X3 Medical Decision Making <AVTAR Harmon - Last Filed: 08/14/24 23:17> Medical Records Medical records reviewed: Yes I reviewed the patient's medical records. Screening: Per USPSTF and CDC recommendations, given the prevalence of disease in our region, it is our hospital?s policy to screen for HIV and viral Hepatitis for all patients aged 18 and over and those with ongoing risk factors. Sam Inquiry Pt receiving controlled substance: No Vital Signs: 08/14/24 21:13 08/14/24 21:20 08/14/24 21:30 Temperature 98.2 F Temperature Source Oral Pulse Rate 78 72 Pulse Rate [Left Radial] 76 Respiratory Rate 18 Blood Pressure 120/89 122/76 Blood Pressure [Right Arm] 120/89 Blood Pressure Mean [Right Arm] 99 Blood Pressure Source Blood Pressure Source [Right Arm] Automatic Cuff Blood Pressure Position 02 Sat by Pulse Oximetry 96 97 95 Oxygen Delivery Method Room Air 08/14/24 23:34 Temperature 98.2 F Temperature Source Oral Pulse Rate 50 L Pulse Rate [Left Radial] Respiratory Rate 20 Blood Pressure 123/74 Blood Pressure [Right Arm] Blood Pressure Mean [Right Arm] Blood Pressure Source Automatic Cuff Blood Pressure Source [Right Arm] Blood Pressure Position Sitting 02 Sat by Pulse Oximetry Oxygen Delivery Method Room Air Lab Data Lab results reviewed: Yes I reviewed the patient's lab results. Lab Results 08/14/24 22:12: Urine Color Yellow, Urine Appearance Clear, Urine pH 7.0, Ur Specific [place] 1.025, Urine Protein Negative, Urine Glucose (UA) Negative, Urine Ketones Negative, Urine Blood Negative, Urine Nitrate Negative, Urine Bilirubin Negative, Urine Urobilinogen 2.0, Ur Leukocyte Esterase Negative, Urine RBC None, Urine WBC None, Ur Squamous Epith Cells 3-5, Urine Bacteria None Orders (Tests/Meds): ED MEDICATIONS Discontinued Medications Generic Name Dose Route Start Last Admin Trade Name Narayan PRN Reason Stop Dose Admin Acetaminophen 1,000 mg 08/14/24 21:29 08/14/24 21:51 Acetaminophen 500mg Tab PO 08/14/24 21:30 1,000 mg ONCE ONE Administration Dexamethasone Sodium Phosphate 10 mg 08/14/24 21:29 08/14/24 21:52 Dexamethasone 4mg/Ml 5ml Mdv IV 08/14/24 21:30 10 mg ONCE ONE Administration Ketorolac Tromethamine 15 mg 08/14/24 21:29 08/14/24 21:52 Ketorolac 30mg/Ml Vial IV 08/14/24 21:30 15 mg ONCE ONE Administration Lidocaine 1 each 08/14/24 21:29 08/14/24 21:51 Lidocaine 5% Transdermal Patch TP 08/14/24 21:30 1 each ONCE ONE Administration Methocarbamol 500 mg 08/14/24 21:29 08/14/24 21:51 Methocarbamol 500mg Tablet PO 08/14/24 21:30 500 mg ONCE ONE Administration Oxycodone HCl 5 mg 08/14/24 23:23 08/14/24 23:24 Oxycodone 5mg Immediate Release Tablet PO 08/14/24 23:24 5 mg ONCE ONE Administration ORDERS Category Date Time Status CT lumbar spine wo con Stat Cat Scan 08/14/24 21:28 Completed UA [Urinalysis and Microscopic] Stat Lab 08/14/24 22:12 Completed Medical Decision Narrative: In summary patient is a 49-year-old male who presents to the emergency department for evaluation of acute lumbar back pain. Patient is dynamically stable upon arrival, febrile have exist. Physical exam is remarkable for tenderness to palpation in the mid lumbar low spine. Patient has no muscle weakness in the bilateral lower extremities. He has radicular pain that radiates to the bilateral groin but no saddle anesthesia.. Differential diagnosis includes degenerative disc disease paraspinous strain herniated disc etc. Initial workup will be conducted with noncontrasted lumbar CT. Initial interventions include Toradol Tylenol Decadron Robaxin Lidoderm. Initial workup reviewed by me shows that he has no acute processes identifiable on CT scan. Upon repeat evaluation patient is still very uncomfortable but has had some reduction with the initial cocktail. Given this patient is referred to his PCP for recheck within 48 hours or sooner if his symptoms worsen. Patient may likely need an MRI and a spine surgeon for full evaluation. Patient given strict return precautions. <Omkar Castellon MD - Last Filed: 08/15/24 21:52> Vital Signs: 08/14/24 21:13 08/14/24 21:20 08/14/24 21:30 Temperature 98.2 F Temperature Source Oral Pulse Rate 78 72 Pulse Rate [Left Radial] 76 Respiratory Rate 18 Blood Pressure 120/89 122/76 Blood Pressure [Right Arm] 120/89 Blood Pressure Mean [Right Arm] 99 Blood Pressure Source Blood Pressure Source [Right Arm] Automatic Cuff Blood Pressure Position 02 Sat by Pulse Oximetry 96 97 95 Oxygen Delivery Method Room Air 08/14/24 23:34 Temperature 98.2 F Temperature Source Oral Pulse Rate 50 L Pulse Rate [Left Radial] Respiratory Rate 20 Blood Pressure 123/74 Blood Pressure [Right Arm] Blood Pressure Mean [Right Arm] Blood Pressure Source Automatic Cuff Blood Pressure Source [Right Arm] Blood Pressure Position Sitting 02 Sat by Pulse Oximetry Oxygen Delivery Method Room Air Lab Data Lab Results 08/14/24 22:12: Urine Color Yellow, Urine Appearance Clear, Urine pH 7.0, Ur Specific [place] 1.025, Urine Protein Negative, Urine Glucose (UA) Negative, Urine Ketones Negative, Urine Blood Negative, Urine Nitrate Negative, Urine Bilirubin Negative, Urine Urobilinogen 2.0, Ur Leukocyte Esterase Negative, Urine RBC None, Urine WBC None, Ur Squamous Epith Cells 3-5, Urine Bacteria None Orders (Tests/Meds): ED MEDICATIONS Discontinued Medications Generic Name Dose Route Start Last Admin Trade Name Freq PRN Reason Stop Dose Admin Acetaminophen 1,000 mg 10/24/24 21:29 08/14/24 21:51 Acetaminophen 500mg Tab PO 08/14/24 21:30 1,000 mg ONCE ONE Administration Dexamethasone Sodium Phosphate 10 mg 08/14/24 21:29 08/14/24 21:52 Dexamethasone 4mg/Ml 5ml Mdv IV 08/14/24 21:30 10 mg ONCE ONE Administration Ketorolac Tromethamine 15 mg 08/14/24 21:29 08/14/24 21:52 Ketorolac 30mg/Ml Vial IV 08/14/24 21:30 15 mg ONCE ONE Administration Lidocaine 1 each 08/14/24 21:29 08/14/24 21:51 Lidocaine 5% Transdermal Patch TP 08/14/24 21:30 1 each ONCE ONE Administration Methocarbamol 500 mg 08/14/24 21:29 08/14/24 21:51 Methocarbamol 500mg Tablet PO 08/14/24 21:30 500 mg ONCE ONE Administration Oxycodone HCl 5 mg 08/14/24 23:23 08/14/24 23:24 Oxycodone 5mg Immediate Release Tablet PO 08/14/24 23:24 5 mg ONCE ONE Administration ORDERS Category Date Time Status CT lumbar spine wo con Stat Cat Scan 08/14/24 21:28 Completed UA [Urinalysis and Microscopic] Stat Lab 08/14/24 22:12 Completed Medical Decision Narrative: In summary patient is a 49-year-old male who presents to the emergency department for evaluation of acute lumbar back pain. Patient is dynamically stable upon arrival, febrile have exist. Physical exam is remarkable for tenderness to palpation in the mid lumbar low spine. Patient has no muscle weakness in the bilateral lower extremities. He has radicular pain that radiates to the bilateral groin but no saddle anesthesia.. Differential diagnosis includes degenerative disc disease paraspinous strain herniated disc etc. Initial workup will be conducted with noncontrasted lumbar CT. Initial interventions include Toradol Tylenol Decadron Robaxin Lidoderm. Initial workup reviewed by me shows that he has no acute processes identifiable on CT scan. Upon repeat evaluation patient is still very uncomfortable but has had some reduction with the initial cocktail. Given this patient is referred to his PCP for recheck within 48 hours or sooner if his symptoms worsen. Patient may likely need an MRI and a spine surgeon for full evaluation. Patient given strict return precautions. I was consulted by the DRAKE, and we discussed the complexity of the problems being addressed.I approved the treatment and management plan for this patient?s care in the Emergency Department, thus performing a substantive portion of the medical decision making.Signed, Omkar Castellon MD Critical Care <AVTAR Harmon - Last Filed: 08/14/24 23:17> Critical Care Time Critical Care Time: No
--- NOTE | 2024-08-14 21:28 | CT_ITS ---
PROCEDURE INFORMATION: Exam: CT Lumbar Spine Without Contrast Exam date and time: 08/14/2024 9:48 PM Age: 49 years old Clinical indication: Low back pain TECHNIQUE: Imaging protocol: Computed tomography of the lumbar spine without contrast. Radiation optimization: All CT scans at this facility use at least one of these dose optimization techniques: automated exposure control; mA and/or kV adjustment per patient size (includes targeted exams where dose is matched to clinical indication); or iterative reconstruction. COMPARISON: CT ABDOMEN PELVIS WO CON 07/24/2020 9:16 AM FINDINGS: Bones/joints: Osseous alignment is normal. No vertebral body compression or acute fracture. Mild multilevel disc bulge and uncovertebral spurring. Mild multilevel facet arthropathy. Moderate degenerative changes in the bilateral sacroiliac joints. Kidneys and ureters: Evidence of bilateral nephrolithiasis. Soft tissues: Unremarkable. IMPRESSION: Mild degenerative changes as described. No acute abnormality.
[2024-08-14 21:30] VITALS: BP 122/76; PULSE 72; O2SAT 95
[2024-08-14] MEDS: METHOCARBAMOL 500MG TABLET 500 MG PO (21:51)
[2024-08-14] MEDS: ACETAMINOPHEN 500MG TAB 1000 MG PO (21:51)
[2024-08-14] MEDS: LIDOCAINE 5% TRANSDERMAL PATCH 1 EACH TP (21:51)
[2024-08-14] MEDS: KETOROLAC 30MG/ML VIAL 15 MG IV (21:52)
[2024-08-14] MEDS: DEXAMETHASONE 4MG/ML 5ML MDV 10 MG IV (21:52)
--- NOTE | 2024-08-14 21:56 | PC.NURSE ---
2130 temp 94.0
--- NOTE | 2024-08-14 22:13 | PC.NURSE ---
Post void residual 0. MD Castellon notified. UA sent to lab
[2024-08-14 22:16] LABS: Microscopic, Urine URINE MICROSCOPIC (MICROSCOPIC)
[2024-08-14 22:24] LABS: Appearance,Urine CLEAR (Clear); Bilirubin,Urine Negative (Negative); Blood, Urine Negative (Negative); Color,Urine YELLOW (Yellow); Glucose,Urine (UA) Negative (Negative); Ketones,Urine Negative (Negative); Leukocyte Esterase,Urine Negative (Negative); Nitrate,Urine Negative (Negative); Protein,Urine Negative (Negative); Specific Gravity, Urine 1.025 (1.005-1.030)
[2024-08-14] MEDS: OXYCODONE 5MG IMMEDIATE RELEASE TABLET 5 MG PO (23:24)
[2024-08-14 23:34] VITALS: BP 123/74; PULSE 50; RESP 20; TEMP 36.8; O2SAT 95
== END 2024-08-14 23:36 | disposition home or self-care (01) ==
PROVIDERS: Physician Assistant; Emergency Provider Emergency Medicine; PCP Nurse Practitioner Family
DX: M54.50 Low back pain, unspecified (principal)
CPT/HCPCS: 72131; 81001; 96374; 96375; 99284; J1100; J1885

== ENCOUNTER 2024-08-16 22:59 | Emergency (ER) | payer OTHER, SELFPAY ==
[2024-08-16 23:00] VITALS: BP 143/90; PULSE 70; RESP 18; TEMP 36.6; O2SAT 95; BMI 38.3
[2024-08-16 23:21] VITALS: BP 128/78; PULSE 66; O2SAT 95
--- NOTE | 2024-08-16 23:29 | HMH.EDGENADL ---
Discharge Plan Disposition Patient Disposition: Xfer Short-Term Hosp Prescriptions Prescriptions: No Action Roselia Vierata 200-62.5-25 mcg blister with device 1 inh INHALATION DAILY 90 Days Qty: 90 3RF albuterol sulfate 90 mcg/actuation HFA aerosol inhaler 1 inh INHALATION QID PRN (Reason: shortness of breath or wheezing) Qty: 8.5 12RF pravastatin 20 mg tablet 20 mg PO DAILY metoprolol succinate [Toprol XL] 25 mg tablet extended release 24 hr 25 mg PO DAILY Qty: 30 5RF losartan-hydrochlorothiazide 100-12.5 mg tablet See Rx Instructions .ROUTE .COMPLEX Qty: 90 3RF Dose Instruction: TAKE 1 TABLET BY MOUTH DAILY FOR BLOOD PRESSURE Rx Instructions: TAKE 1 TABLET BY MOUTH DAILY FOR BLOOD PRESSURE methocarbamol 750 mg tablet 750 mg PO Q6H PRN (Reason: muscle spasm) Qty: 20 0RF prednisone 50 mg tablet 50 mg PO DAILY 5 Days Qty: 5 0RF lidocaine 5 % adhesive patch,medicated 1 patch topical DAILY Qty: 30 0RF Rx Instructions: leave on most painful area for up to 12 hrs Referrals Follow up/Referrals: Ameya Noland APRN [Primary Care Provider] - See instructions Clinical Impressions Clinical Impression: Low back pain, Bulging disc, Sacroiliitis, Fecal incontinence, Decreased rectal sphincter tone Instructions Patient Instructions: DI for Low Back Pain Print Language Print Language: Arabic Discharge ED Provider: Pedro Duong General Adult HPI General Chief complaint: Back Pain/Injury Stated complaint: Lower back,left groin pain Time Seen by Provider: 08/16/24 23:20 Mode of Arrival: Ambulatory Source of Information: Patient Limitations: Physical Limitations Description of Symptoms (Recalled from ER Triage Doc. by RN): Patient was here on for the same issue. Was told it was an issue with his SI joint. Complains of groin pain and back pain. worse today, worse when walking. History of Present Illness HPI narrative: 49-year-old male with history of JOSH, COPD, prediabetes presents to the ER with back pain. Patient was here on 08/14 for the same complaints. At that time CT imaging showed degenerative changes in the bilateral SI joints as well as multilevel disc bulging. Per provider notes, at that time patient did not have any problems with incontinence, he was able to ambulate, and he did not have saddle anesthesia. Patient and at bedside agree with this report. Unfortunately, today despite taking his muscle relaxer and steroid as prescribed, he had an episode of bowel incontinence 1 hour prior to arrival. Patient denies saddle anesthesia, he states he has been able to urinate, but his legs have been having worsening weakness since discharge. He presented to the ER for the symptoms. He states he has had no new injuries or other changes since his evaluation 2 days ago. ROS otherwise negative. Related Data Home Medications ?Medication ?Instructions ?Recorded ?Confirmed pravastatin 20 mg tablet 20 mg PO DAILY 03/01/22 10/11/23 Previous Rx's ?Medication ?Instructions ?Recorded albuterol sulfate 90 mcg/actuation 1 inh inhalation QID PRN shortness 11/30/21 aerosol inhaler of breath or wheezing #8.5 grams fluticasone fur. 200 mcg-umeclid 1 inh inhalation DAILY 90 days #90 11/30/21 62.5 mcg-vilant 25 mcg ea inhalat.powder (Trelegy Ellipta) metoprolol succinate 25 mg 25 mg PO DAILY #30 tabs 10/11/23 tablet,extended release 24 hr (Toprol XL) losartan 100 See Rx Instructions .Route 05/26/24 mg-hydrochlorothiazide 12.5 mg .COMPLEX #90 tabs tablet lidocaine 5 % topical patch 1 patch topical DAILY #30 ea 08/14/24 methocarbamol 750 mg tablet 750 mg PO Q6H PRN muscle spasm #20 08/14/24 tabs prednisone 50 mg tablet 50 mg PO DAILY 5 days #5 tabs 08/14/24 Allergies Allergy/AdvReac Type Severity Reaction Status Date / Time codeine [CODEINE] Allergy Mild Hives Verified 10/11/23 13:49 [facility] Disclaimer: The information contained in this section may have been updated after the patient was seen, as this information can be updated by other users. Medical History Abnormal computerized axial tomography of chest Abnormal electrocardiography Carpal tunnel syndrome on both sides COPD (chronic obstructive pulmonary disease) Diastolic dysfunction Dyspnea Dyspnea on exertion Family history of asthma Family history of heart disease History of 2019 novel coronavirus disease (COVID-19) History of asthma Left to right cardiac shunt Moderate persistent asthma Obesity JOSH (obstructive sleep apnea) Pulmonary emphysema Restrictive lung disease Seasonal allergies Smoking greater than 30 pack years Tobacco abuse disorder Tobacco dependence syndrome Surgical History History of arthroscopic knee surgery History of carpal tunnel release Family History Other Diabetes Heart attack Hypertension Stroke Social History Smoking Status: Current every day smoker tobacco type: cigarettes packs per day: 1 second hand exposure: Yes alcohol intake: never substance use type: former substance user and marijuana current occupational status: employed Travel in the last 8 weeks: None household members: spouse and children housing: house marital status: current occupation: factory current occupational exposures/hazards: No caffeine: Yes Other Medical History Have you received the Flu Vaccine for this season: No Have you received the Pneumonia Vaccine: No ROS Obtained: Yes All systems reviewed & no additional complaints except as documented Positive ROS per HPI Physical Exam General General appearance: alert Comment: Uncomfortable appearing but not in extremis Head Head exam: atraumatic and normocephalic Eye Eye exam: Present PERRL and EOMI ENT ENT exam: Present mucous membranes moist Neck Neck exam: Present normal inspection and full ROM Chest Chest inspection: Present symmetric chest wall rise Respiratory Respiratory exam: Absent respiratory distress or stridor Cardiovascular Cardiovascular exam: Present regular rate and normal rhythm Abdominal Exam Abdominal exam: Present soft; Absent distention or tenderness Extremities Exam Extremities exam: Present full ROM; Absent edema Back Exam Back exam: Present tenderness (Midline tenderness to palpation of the lumbar spine, lidocaine patch in place, no deformity or step-off appreciated) and other (Patient also has tenderness to palpation of bilateral SI joints, worse on the right than the left); Absent CVA tenderness (R), CVA tenderness (L) or paraspinal tenderness Neurological Exam Neurological exam: Present alert, oriented X3 and motor sensory deficit (Patient has 4 out of 5 strength in bilateral lower extremities, normal sensation, no saddle anesthesia) Psychiatric Psychiatric exam: Present normal affect and normal mood Skin Skin exam: Present warm and dry Medical Decision Making Medical Records Screening: Per USPSTF and CDC recommendations, given the prevalence of disease in our region, it is our hospital?s policy to screen for HIV and viral Hepatitis for all patients aged 18 and over and those with ongoing risk factors. Sam Inquiry Pt receiving controlled substance: No Vital Signs: 08/16/24 23:00 08/16/24 23:21 08/16/24 23:41 Temperature 97.8 F Temperature Source Oral Pulse Rate 66 67 Pulse Rate [Right Radial] 70 Respiratory Rate 18 Blood Pressure 128/78 132/74 Blood Pressure [Right Arm] 143/90 H Blood Pressure Mean [Right Arm] 107 Blood Pressure Source [Right Arm] Automatic Cuff 02 Sat by Pulse Oximetry 95 95 96 Oxygen Delivery Method Room Air Lab Data Lab Results 08/16/24 23:52: WBC 11.0 H, RBC 4.94, Hgb 15.4, Hct 45.7, MCV 92.5, MCH 31.1, MCHC 33.6, RDW 13.6, Plt Count 184, MPV 9.2, Neut % (Auto) 56.5, Lymph % (Auto) 35.4, Carbon % (Auto) 5.5, Eos % (Auto) 1.6, Baso % (Auto) 1.0, Neut # (Auto) 6.2, Lymph # (Auto) 3.9, Carbon # (Auto) 0.6, Eos # (Auto) 0.2, Baso # (Auto) 0.1 08/16/24 23:52 Orders (Tests/Meds): ED MEDICATIONS Discontinued Medications Generic Name Dose Route Start Last Admin Trade Name Freq PRN Reason Stop Dose Admin Ketorolac Tromethamine 15 mg 08/16/24 23:28 08/16/24 23:35 Ketorolac 30mg/Ml Vial IV 08/16/24 23:29 15 mg ONCE ONE Administration ORDERS Category Date Time Status CBC w/Auto Diff [Complete Blood Count Auto Diff] Stat Lab 08/16/24 23:52 Completed CMP [Comprehensive Metabolic Panel] Stat Lab 08/16/24 23:52 Received CRP [C-Reactive Protein] Stat Lab 08/16/24 23:52 Received Medical Decision Narrative: In summary, this 49-year-old male with comorbidities as demonstrated in HPI presents to the emergency department today with back pain, worsening leg weakness, bowel incontinence. On initial evaluation patient is hemodynamically stable, afebrile, tenderness to palpation of the midline low back as well as right SI joint, 4 out of 5 strength equal in bilateral lower extremities, sensation intact, decreased rectal tone. I have high concern for cauda equina. Other differentials include sacroiliitis, lumbar radiculopathy, sciatica. As part of the evaluation I ordered postvoid bladder scan, patient was unable to void since he had shortly before arrival, but he only had 32 mL in the bladder. Patient had CT imaging 48 hours ago and his symptoms are consistent with what they were previously but they are worsening. I do not believe repeat imaging is indicated at this time, it is more important that patient get transferred to a center with higher level of care for MRI and neurosurgery/Spine surgery available. Patient received Toradol. Basic labs also ordered to rule out possible infectious etiology though I have very low suspicion for this. I reviewed labs from patient's previous encounter which demonstrates UA was negative for findings of infection. I considered administering steroids however patient is currently taking 50 mg prednisone daily since the time of discharge from his last encounter including taking his dose today. I do not believe additional steroids are needed at this time. [facility] was immediately contacted for transfer request for concerns of cauda equina. At 0009 they called back and I spoke with Dr. Vanegas. We discussed patient's symptoms, imaging results from 2 days ago, current management in the ER. She graciously excepted the patient for ED to ED transfer to [facility] for concerns of cauda equina. Patient was still having significant pain prior to transfer though he stated it was slightly relieved by the Toradol. He received Dilaudid and Zofran which she tolerated well. Patient transferred in stable condition. Critical Care Critical Care Time Critical Care Time: No
[2024-08-16] MEDS: KETOROLAC 30MG/ML VIAL 15 MG IV (23:35)
--- NOTE | 2024-08-16 23:40 | PC.NURSE ---
[facility] notified of need to transfer
[2024-08-16 23:41] VITALS: BP 132/74; PULSE 67; O2SAT 96
--- NOTE | 2024-08-16 23:56 | PC.NURSE ---
32mL on bladder scan
[2024-08-16 23:59] LABS: Basophils # 0.1 K/mm3 (0-0.2); Eosinophils # 0.2 K/mm3 (0.0-0.4); Eosinophils % 1.6 % (0.1-12.0); Hematocrit 45.7 % (42.0-52.0); Hemoglobin 15.4 g/dL (14.1-18.0); Lymphocytes # 3.9 K/mm3 (0.7-4.5); Lymphocytes % 35.4 % (10-50); Mean Corpuscular HGB Conc 33.6 g/dL (31.8-35.4); Mean Corpuscular Hemoglobin 31.1 pg (27.0-31.2); Mean Corpuscular Volume 92.5 fl (80-94); Mean Platelet Volume 9.2 fl (7.4-10.4); Monocytes # 0.6 K/mm3 (0.1-1.0); Monocytes % 5.5 % (1.7-9.3); Neutrophils # 6.2 K/mm3 (1.8-7.8); Neutrophils % 56.5 % (37.0-80.0); Platelet Count 184 K/mm3 (142-424); Red Blood Count 4.94 M/mm3 (4.60-6.20); Red Cell Distribution Width 13.6 % (11.5-17.5)
[2024-08-17] VITALS: BP 143/78; PULSE 70; O2SAT 96
[2024-08-17 00:19] VITALS: BP 143/78; PULSE 66; RESP 61; TEMP 36.6; O2SAT 99
[2024-08-17 00:22] LABS: Alanine Aminotransferase 24 U/L (12-78); Albumin/Globulin Ratio 1.7 (1.1-1.8); Alkaline Phosphatase 29 U/L (38-126); Anion Gap 7.9 mEq/L (5-15); Aspartate Amino Transferase 21 U/L (17-59); Bilirubin,Total 0.7 mg/dl (0.2-1.3); Blood Urea Nitrogen 23 mg/dl (9-20); Calcium 8.9 mg/dl (8.4-10.2); Carbon Dioxide 26 mmol/L (22.0-30.0); Chloride 109 mmol/L (98-107); Creatinine Clearance Estimated 182 mL/min (50-200); Estimated Glomerular Filt Rate 90 ml/min (>60); GFR (African American) 109 ML/MIN (>60); Globulin 2.4 g/dL (1.3-3.2); Glucose 97 mg/dl (74-100); Potassium 3.9 mmoL/L (3.5-5.1); Sodium 139 mmol/L (136-145); Total Protein,Serum 6.4 g/dl (6.3-8.2)
[2024-08-17 00:27] LABS: C-Reactive Protein 3.9 mg/L (0-4)
--- NOTE | 2024-08-17 00:45 | PC.NURSE ---
EMS notified of need for transport
[2024-08-17] MEDS: HYDROMORPHONE 2MG/ML SYRINGE 0.5 MG IV (00:47)
[2024-08-17] MEDS: ONDANSETRON 4MG/2ML VIAL 4 MG IV (00:48)
== END 2024-08-17 02:11 | disposition short-term general hospital (02) ==
PROVIDERS: Emergency Provider Emergency Medicine; PCP Nurse Practitioner Family
DX: K62.89 Other specified diseases of anus and rectum (principal); M46.1 Sacroiliitis, not elsewhere classified; M51.16 Intervertebral disc disorders with radiculopathy, lumbar region; M54.50 Low back pain, unspecified; R10.30 Lower abdominal pain, unspecified; R15.9 Full incontinence of feces
CPT/HCPCS: 80053; 85025; 86140; 96374; 96375; 99283; J1171; J1885; J2405

== ENCOUNTER 2024-10-17 17:00 | Outpatient (RCR) | payer OTHER, SELFPAY | END 2024-10-17 23:59 | disposition home or self-care (01) | LOC: PT 17:00 | PROVIDERS: PCP Nurse Practitioner Family; Visit Provider Physician Assistant Medical | DX: M51.16 Intervertebral disc disorders with radiculopathy, lumbar region (principal) | CPT/HCPCS: 97012; 97014; 97163; 97530; G0283 ==

== ENCOUNTER 2025-02-04 13:51 | Outpatient (CLI) | payer OTHER, SELFPAY ==
--- OUTSIDE RECORDS SUMMARY | 2025-02-04 13:54 | XMS_ITS | Data Portability ---
Author Organization [facility] [place] [facility] Address [address] [place] [address] Care Team Providers Care Coal Loader Name Role Phone KNIGHTMARLENRODERICK Primary Care Provider Assessment No assessment recorded. Plan of Treatment Reminders Order Date Submit Date Provider Last Modified By Organization Details Last Modified Time Details Appointments None recorded. Lab rf (rheumatoid factor), serum 2022 023 [facility], [address] [place] [address], [id number], 3 16:35:29 ccp (cyclic citrullinat ed peptide) iga+igg, serum 2022 023 [facility], [address] [place] [address], [phone], 3 15:07:19 Referral None recorded. Procedures None recorded. Surgeries None recorded. Imaging XR, wrist + hand 2022 023 [facility], [address] [place] [address], [phone], 3 15:14:38 Medication Orders None recorded. Patient TargetsNo targets recorded. Patient InstructionsNo instructions recorded. Reason for Referral None Reported. Results Created Date Observation Date Name Description Value Unit Range Abnormal Flag Note LastModifiedBy Organization Detail LastModifiedTime 02/27/20 23 02/26/2023 RF SCREE N, QUANT . rf screen, quant. <10.0 IU/mL 0.0-13 .9 normal Not Available [facility] [address] [place], [address], 02/26/2023 16:35:29 02/27/20 23 02/28/2023 ANTI- CCP anti-ccp <16 units normal Refer ence Range Negat heather: <20 Weak Posit heather: 20-39 Moder ate Posit heather: 40-59 Stron g Posit heather: >59 TEST PERFO RMED AT: [facility] [address] [place] [address] ANTHO NY V TRINI S Not Available [facility] [address] [place], [address], 02/28/2023 15:07:19 02/27/20 23 02/26/2023 XR, wrist + hand [facility] [address] [place] [address], [place] [address] Edouard radford Name: LENNY radford : [phone] Edouard radford 80 Orderi ng Provid er: ARIADNA ATWOOD EXAM DATE: 2022 EXAM: XR CRUZ HANDS AND WRISTS 2VWS HISTOR Y: Bilate ral hand and wrist pain. COMPAR MAYTE: None. FINDIN GS: There are mild to modera te degene rative change s in the right radioc arpal joint, trisca phe joint and first carpom etacar pal joint. There are mild degene rative change s in the left wrist. There are mild degene rative change s in the interp halang eal joints and metaca rpopha langea l joints . No acute fractu re is identi fied. There is an old fractu re of the right fifth metaca rpal and the right ulnar styloi d. There is prior fixati on of bilate ral distal radial fractu res. Metall ic foreig n body projec ts along the right second finger adjace nt to the base of the middle phalan x. IMPRES MINNIE: 1. There are mild to modera te degene rative change s in the right hand and wrist and mild degene rative change s in the left hand and wrist. Interp reted By: Renetta irvin MD Electr onical ly Signed By: Renetta irvin MD on 02/27/20 3:[address] Radiology [facility] [address] [place], [address], 03/12/2023 09:55:41 Result Notes None recorded. Procedures Surgical History Date Name Laterality Status Provider Name and Address Organization Details Recorded Time procedure on wrist completed [facility] 02/26/2023 13:59:31 Carpal tunnel surgery completed [facility] 02/26/2023 13:59:10 Imaging Results Imaging Date Name Status LastModified by Organiz ation Details LastModified Time 02/26/2023 XR, wrist + hand completed [address] Radiology [facility] [address] [place], [address], 03/12/2023 09:55:41 Procedure Notes None recorded. Medical Equipment None Reported. Allergies Allergen ID Allergen Name Allergen Category Reaction Reaction Severity Criticality Documentation Date Start Date Code Code System Note Provider Name and Address Organization Details Recorded Time 346803 codeine medicatio n Not available Not available Not available 02/26/2023 2670 [facility] 13:50:10 Medications Name Sig Start Date Stop Date Status Note LastModified by Organization Details LastModified Time celecoxib 200 mg capsule Take 1 capsule every day by oral route. active Not Available Not Available No t Available losartan 100 mg-hydrochlo rothiazide 25 mg tablet Take 1 tablet every day by oral route. active Not Available Not Available No t Available pravastatin 20 mg tablet Take 1 tablet every day by oral route. active Not Available Not Available No t Available albuterol sulfate HFA 90 mcg/actuatio n aerosol inhaler Inhale 1 puff every day by inhalation route. active Not Available Not Available No t Available Trelegy Ellipta 100 mcg-62.5 mcg-25 mcg powder for inhalation active Not Available Not Available N ot Available Vitals Date Recorded Body weight Body mass index (BMI) Body height Heart rate Oxygen saturation Oxygen saturation in Arterial blood by Pulse oximetry Systolic blood pressure Diastolic blood pressure Provider Name and Address Organization Details Last Updated DateTime 3 223666. 3 g 39.1 kg/m2 182.88 cm 78 /min 95 % 95 % 164 mm[Hg] 74 mm[Hg] Sarah Arellano [facility] 13:47:46 Social History Question Answer Notes LastModified by Organizat ion Details LastModified Time Tobacco Smoking Status Current Every Day Smoker Sarah Arellano [facility] 02/26/2023 13:58:05 What Is Your Level Of Alcohol Consumption? None Information not available 02/26/2023 What Was The Date Of Your Most Recent Tobacco Screening? 02/26/2023 Information not available 02/26/2023 What Is Your Current Pack Years? 30ormorepacky ears Information not available 02/26/2023 How Much Tobacco Do You Smoke? 1 PPD Information not available 02/26/2023 Have You Recently Traveled Abroad? No Information not available 02/26/2023 Sex: Unknown Functional Status None recorded. Mental Status None recorded. Family History Nothing Reported. Medical History Condition Response Diabetes N Bleeding Disorder N Arthritis Y Emphysema N Acid Reflux (GERD) N Heart Disease N Hypertension Y COPD Y Asthma Y Past Encounters Encounter ID Performer Location Encounter Start Date Encounter Closed Date Diagnosis/Indication Diagnosis SNOMED-CT Code Diagnosis ICD10 Code Diagnosis Note [id number] ARIADNA KING APRN RHEUMATOL [facility] [address] [place] [address] 02/26/2023 13:21:43 02/27/2023 04:55:55 Pain of bilateral hands [id number] M79.641 M79.642 Baseline x-rays ordered today. X-ray showed bilateral hand and wrist moderate degenerati on. Patient has concerns would like to rule out rheumatoid arthritis. We discussed he did not have any clinical evidence of rheumatoid arthritis but would be glad to order the labs to rule out. Degenerati ve joint disease of hand [id number] M19.049 Clinical evidence of bilateral flexor tenosynovi tis without evidence of rheumatoid arthritis. Suggest paraffin wax pot to use at night. Copper arthritis gloves to wear throughout the day. Unfortunat kerrie he has a history of hypertensi on with blood pressure as high as 240 systolic. Suggest avoiding NSAIDs. He can take Tylenol arthritis twice daily. Use Voltaren gel over-the-c ounter for topical relief. Use a paraffin wax bath at night. He can purchase arthritis gloves to wear throughout the day. We discussed a pain management referral. He is not interested in a referral at this time. He wants to avoid medication s as much as possible. We discussed convention al treatment modalities for his condition. He can follow-up as needed. Health Concerns Section Related Observation LastModified by Organization Detai ls LastModified Time None Recorded Concern Status LastModified by Organization Details LastModified Time None Recorded Advance Directives Directive None Recorded Payers Encounter Date Sequence Insurance Name Policy Number Policy Marshall Covered Member ID Marshall Member ID Guarantor Name 02/26/2023 1 [place]: [facility] [id number] Lenny Del Rio [id number] Lenny Del Rio Notes Date Note Type Note Provider Name and Address Organization Details Recorded Time 02/26/2023 text/html Patient is a 47-year-old male here today due to bilateral hand pain for the last 14 years. He has stiffness in the mornings and pain throughout the day He has a history of numerous surgeries on his hands and wrist including carpal tunnel release and reconstruction by Dr. Mansfield. Had steroid injections at [facility] in the past with no relief. He is taking Celebrex 200mg daily He works with impact tools and wrenches daily No personal history of IBS, crohns or ulcerative colitis. No history off gout. No family history of autoimmune diseases ARIADNA KING, ACTIVE DIRECTORY SYSTEMS ADMINISTRATOR [address] [place], [address], [facility] 02/26/2023 16:07:59
[2025-02-04 14:20] LABS: Basophils # 0.1 K/mm3 (0-0.2); Basophils % 0.8 % (0.1-2.0); Eosinophils # 0.2 K/mm3 (0.0-0.4); Eosinophils % 2.7 % (0.1-12.0); Hematocrit 46.5 % (42.0-52.0); Hemoglobin 15.7 g/dL (14.1-18.0); Lymphocytes # 2.7 K/mm3 (0.7-4.5); Lymphocytes % 31.5 % (10-50); Mean Corpuscular HGB Conc 33.8 g/dL (31.8-35.4); Mean Corpuscular Hemoglobin 30.6 pg (27.0-31.2); Mean Corpuscular Volume 90.6 fl (80-94); Mean Platelet Volume 11.1 fl (7.4-10.4); Monocytes # 0.7 K/mm3 (0.1-1.0); Monocytes % 7.6 % (1.7-9.3); Neutrophils % 57.2 % (37.0-80.0); Nucleated Red Blood Cells # 0 10^3/uL; Nucleated Red Blood Cells % 0 %; Platelet Count 210 K/mm3 (142-424); Red Blood Count 5.13 M/mm3 (4.60-6.20); Red Cell Distribution Width 12.9 % (11.5-17.5); White Blood Count 8.7 K/mm3 (4.8-10.8)
[2025-02-04 14:55] LABS: D-Dimer 0.59 ug/mL (0.0-0.5)
[2025-02-04 16:55] LABS: Albumin Level 4.4 g/dl (3.5-5.0); Chloride 105 mmol/L (98-107)
[2025-02-04 16:56] LABS: Potassium 4.3 mmoL/L (3.5-5.1); Sodium 139 mmol/L (136-145)
[2025-02-04 16:58] LABS: Alanine Aminotransferase 40 U/L (12-78); Anion Gap 12.3 mEq/L (5-15); Aspartate Amino Transferase 31 U/L (17-59); Bilirubin,Unconjugated 0.6 mg/dL (0.0-1.1); Blood Urea Nitrogen 16 mg/dl (9-20); Carbon Dioxide 26 mmol/L (22.0-30.0); Estimated Glomerular Filt Rate 103 ml/min (>60); GFR (African American) 125 ML/MIN (>60); Total Protein,Serum 7.2 g/dl (6.3-8.2); Triglycerides 236 mg/dl (30-150); VLDL Cholesterol 47 mg/dL (0-40)
[2025-02-04 16:59] LABS: Alkaline Phosphatase 44 U/L (38-126); Bilirubin,Direct 0.2 mg/dl (0.0-0.4); Bilirubin,Indirect 0.6 mg/dL (0.0-0.9); Bilirubin,Total 0.8 mg/dl (0.2-1.3); Calcium 9.3 mg/dl (8.4-10.2); Cholesterol 218 mg/dl (140-200); Glucose 80 mg/dl (74-100); HDL Cholesterol 44 mg/dl (40-60)
[2025-02-04 17:07] LABS: NT Pro Brain Natriuretic Pep. 70.9 pg/mL (0-125)
[2025-02-04 17:10] LABS: Direct LDL Cholesterol 152.44 mg/dL (100-129)
[2025-02-04 17:26] LABS: Troponin I < 0.01 ng/ml (0.00-0.034)
[2025-02-04 17:28] LABS: Thyroid Stimulating Hormone 2.56 uIU/mL (0.465-4.68)
== END 2025-02-04 23:59 | disposition home or self-care (01) ==
LOC: LAB 13:52
PROVIDERS: Nurse Practitioner Family; PCP Nurse Practitioner Family; Visit Provider Internal Medicine
DX: R06.09 Other forms of dyspnea (principal); I10 Essential (primary) hypertension
CPT/HCPCS: 36415; 80048; 80061; 80076; 83880; 84439; 84443; 84484; 85025; 85378

== ENCOUNTER 2025-02-06 11:58 | Outpatient (CLI) | payer OTHER, SELFPAY ==
--- OUTSIDE RECORDS SUMMARY | 2025-02-06 12:00 | XMS_ITS | Data Portability ---
Author Organization [facility], [facility] CLOSED Address [address] [place] [address] Care Team Providers Care Deckhand [employer] Name Role Phone KNIGHTMARLENRODERICK Primary Care Provider [phone] Assessment No assessment recorded. Plan of Treatment Reminders Order Date Submit Date Provider Last Modified By Organization Details Last Modified Time Details Appointments None recorded. Lab rf (rheumatoid factor), serum 2022 023 [facility], [address] [place] [address], [phone], 3 16:35:29 ccp (cyclic citrullinat ed peptide) iga+igg, serum 2022 023 [facility], [address] [place] [address], [phone], 3 15:07:19 Referral None recorded. Procedures None recorded. Surgeries None recorded. Imaging XR, wrist + hand 2022 023 [facility] Radiology [facility], [address] [place] [address], [phone], 3 15:14:38 Medication Orders None recorded. Patient TargetsNo targets recorded. Patient InstructionsNo instructions recorded. Reason for Referral None Reported. Results Created Date Observation Date Name Description Value Unit Range Abnormal Flag Note LastModifiedBy Organization Detail LastModifiedTime 02/27/20 23 02/26/2023 RF SCREE N, QUANT . rf screen, quant. <10.0 IU/mL 0.0-13 .9 normal Not Available [facility] [address] [place], [address], 02/26/2023 16:35:29 02/27/20 23 02/28/2023 ANTI- CCP anti-ccp <16 units normal Refer ence Range Negat heather: <20 Weak Posit heather: 20-39 Moder ate Posit heather: 40-59 Stron g Posit heather: >59 TEST PERFO RMED AT: [facility] [address] [place] [address] ANTHO [place] V TRINI S Not Available [facility] [address] [place], [address], 02/28/2023 15:07:19 02/27/20 23 02/26/2023 XR, wrist + hand [facility] [address] [place] [address], [place] [address] Edouard radford Name: LENNY radford : [phone] [...] Renetta irvin MD on 02/27/20 3:[address] Radiology [facility] [address] [place], [address], 03/12/2023 09:55:41 Result Notes None recorded. Procedures Surgical History Date Name Laterality Status Provider Name and Address Organization Details Recorded Time procedure on wrist completed [facility] 02/26/2023 13:59:31 Carpal tunnel surgery completed [facility] 02/26/2023 13:59:10 Imaging Results Imaging Date Name Status LastModified by Organiz ation Details LastModified Time 02/26/2023 XR, wrist + hand completed [address] Radiology [facility] [address] [place], [address], 03/12/2023 09:55:41 Procedure Notes None recorded. Medical Equipment None Reported. Allergies Allergen ID Allergen Name Allergen Category Reaction Reaction Severity Criticality Documentation Date Start Date Code Code System Note Provider Name and Address Organization Details Recorded Time 476120 codeine medicatio n Not available Not available Not available 02/26/2023 2670 RxNorm [facility] 13:50:10 Medications Name Sig Start Date Stop [...] Address Organization Details Last Updated DateTime 3 891075. 3 g 39.1 kg/m2 182.88 cm 78 /min 95 % 95 % 164 mm[Hg] 74 mm[Hg] Sarah Arellano [facility] 13:47:46 Social History Question Answer Notes LastModified by Organizat ion Details LastModified Time Tobacco Smoking Status Current Every Day Smoker Sarah Arellano [facility] 02/26/2023 13:58:05 What Is Your Level Of [...] SNOMED-CT Code Diagnosis ICD10 Code Diagnosis Note [id number] ARIADNA KING APRN RHEUMATOL OGY [address] [place] [address] 02/26/2023 13:21:43 02/27/2023 04:55:55 Pain of bilateral hands [id number] M79.641 M79.642 Baseline x-rays ordered today. X-ray showed bilateral hand and wrist moderate degenerati on. Patient has concerns would like to rule out rheumatoid arthritis. We discussed he did not have any clinical evidence of rheumatoid arthritis but would be glad to order the labs to rule out. Degenerati ve joint disease of hand [id number] M19.049 Clinical evidence of bilateral flexor tenosynovi [...] Guarantor Name 02/26/2023 1 [place]: MICHAEL SANTANA [facility] [id number] Lenny Del Rio [id number] 85 Lenny Del Rio Notes Date Note [...] by Dr. Mansfield. Had steroid injections at [facility] in the past with no relief. He is taking Celebrex 200mg daily He works with impact tools and wrenches daily No personal history of IBS, crohns or ulcerative colitis. No history off gout. No family history of autoimmune diseases ARIADNA KING, LABORATORY CHIEF [address] [place], [address], [facility] 02/26/2023 16:07:59
--- NOTE | 2025-02-06 12:15 | CT_ITS ---
FINAL REPORT TECHNIQUE: The patient was injected with IV contrast. Axial images were obtained through the chest in a PE protocol. 3-D reconstruction images were also performed. Individualized dose reduction techniques using automated exposure control or adjustment of the MA and/or KV according to patient's size were employed. CLINICAL HISTORY: elevated d dimer COMPARISON: 11/16/2021 FINDINGS: Mediastinal vasculature is adequately opacified. No pulmonary artery filling defects are identified to suggest PE. There is no aortic dissection. There is no axillary adenopathy. There is no hilar or mediastinal adenopathy. The heart size is normal. There is no pericardial or pleural effusion. There is scarring in the lingula. No suspicious infiltrate or nodule is identified. Limited images of the upper abdomen demonstrate a peripherally calcified lesion in the spleen measuring up to 5.1 cm in diameter. This is stable compared to the prior exam. There are nonobstructing stones in the right renal collecting system measuring up to 5 mm in greatest dimension. IMPRESSION: No pulmonary embolus or dissection. Reviewed, Interpreted and Dictated by Bronson Tobar MD Transcribed by Nkechi Mccann Authenticated and . [facility]
[2025-02-06] MEDS: SODIUM CHLORIDE 0.9% 10ML SYR (RAD ONLY) 10 ML IV (12:22)
[2025-02-06] MEDS: 0.9 % SODIUM CHLORIDE 50 ML VIAL IV (12:22)
[2025-02-06] MEDS: IOPAMIDOL-370 (76%);100ML BOTTLE 75 ML IV (12:23)
== END 2025-02-06 23:59 | disposition home or self-care (01) ==
LOC: RAD 11:59
PROVIDERS: PCP Nurse Practitioner Family; Visit Provider Nurse Practitioner Family
DX: R79.89 Other specified abnormal findings of blood chemistry (principal); R07.9 Chest pain, unspecified
CPT/HCPCS: 71275; Q9967

== ENCOUNTER 2025-02-25 13:32 | Outpatient (CLI) | payer OTHER, SELFPAY ==
--- NOTE | 2025-02-25 13:45 | CA_ITS ---
APPROVED REPORT EXAM: Comprehensive 2D, Doppler, and color-flow Echocardiogram Professional Services Manager: Antoinette Martinez RVT Ht: 6 ft 1 in Wt: 288lbs BSA: 2.51 BP: 152/80 mmHg Indications: SOA,COPD,COPD,SMOKER,HTN,ABN EKG,JOSH 2D Dimensions LA Volume 49.90 mL LA Volume Index 19.88 mL/m2 (M/F) 16-34 M-Mode Dimensions RVDd 2.58 cm (0.9-2.6) LA Diam 4.22 cm (1.9-4.0) LVDd 6.28 cm (3.5-5.7) LVDs 4.17 cm (3.5-5.7) IVSd 1.03 cm (0.6-1.1) PWd 0.66 cm (0.6-1.1) EF (Teich) 61.30% FS 33.60% EDV (Teich) 199.70 mL TAPSE 3.27 (<1.7) ESV (Teich) 77.30 mL LV Diastology E Decel Time 243 (160-240 msec) E/A Ratio 1.0 Aortic Valve ELIE Index 1.05 cm2/m2 AoV Peak Con. 187.0 (50-130 cm/s) AO Peak GR. 14.00 mmHg AO Mean GR. 8.00 (<5 mmHg) AO VTI 43.6 (18-25 cm) ELIE (VTI) 2.71 (2.5-4.5 cm2) Mitral Valve MV E Max Con. 104.0 (40-130 cm/s) MV A Velocity 100.0 (40-130 cm/s) E/A Ratio 1.05 MV PHT 71.0 ms Pulmonary Valve PV Peak Velocity 76.0 (50-150 cm/s) Left Ventricle The left ventricle is normal size. The left ventricular systolic function is normal. The left ventricular ejection fraction is within the normal range. There is normal left ventricular wall thickness. There is normal LV segmental wall motion. The left ventricular diastolic function is normal. LVEF is 55%. Right Ventricle The right ventricle is normal size. The right ventricular systolic function is normal. Atria The left atrium size is normal. The right atrium size is normal. There is no Doppler evidence of interatrial shunt. Aortic Valve Aortic valve opens well. There is no aortic valvular stenosis. No aortic regurgitation is present. Mitral Valve The mitral valve is normal in structure. No evidence of mitral valve stenosis. There is no mitral valve regurgitation noted. Tricuspid Valve Tricuspid valve is grossly normal in structure and function. Trace tricuspid regurgitation. There is insufficient TR jet to estimate RVSP. Pulmonic Valve The pulmonary valve is normal in structure. Trace pulmonic regurgitation. Great Vessels The aortic root is normal in size. IVC is normal in size and collapses >50% with inspiration. Pericardium There is no pericardial effusion. Other Information Study Quality: Adequate Conclusion Normal biventricular systolic function. No significant valvular stenosis or regurgitation. Electronically signed by : Lynn Mcleod MD 03/04/2025 13:37:33
== END 2025-02-25 23:59 | disposition home or self-care (01) ==
LOC: RT 13:33
PROVIDERS: PCP Nurse Practitioner Family; Visit Provider Nurse Practitioner Family
DX: J44.9 Chronic obstructive pulmonary disease, unspecified (principal); F17.200 Nicotine dependence, unspecified, uncomplicated; I10 Essential (primary) hypertension; R94.31 Abnormal electrocardiogram [ECG] [EKG]; G47.33 Obstructive sleep apnea (adult) (pediatric)
CPT/HCPCS: 93306

== ENCOUNTER 2025-06-04 14:15 | Outpatient (CLI) | payer OTHER, SELFPAY ==
[2025-06-04 14:42] LABS: Hematocrit 46.2 % (42.0-52.0); Hemoglobin 15.7 g/dL (14.1-18.0); Immature Granulocytes % 0.2 %; Mean Corpuscular HGB Conc 34.0 g/dL (31.8-35.4); Mean Corpuscular Hemoglobin 31.3 pg (27.0-31.2); Mean Corpuscular Volume 92.0 fl (80-94); Nucleated Red Blood Cells % 0 %; Platelet Count 191 K/mm3 (142-424); Red Blood Count 5.02 M/mm3 (4.60-6.20); Red Cell Distribution Width-SD 42.5 fL; White Blood Count 9.4 K/mm3 (4.8-10.8)
[2025-06-04 16:29] LABS: Albumin Level 4.5 g/dl (3.5-5.0); Chloride 104 mmol/L (98-107); Sodium 139 mmol/L (136-145)
[2025-06-04 16:30] LABS: Potassium 4.3 mmoL/L (3.5-5.1)
[2025-06-04 16:32] LABS: Alanine Aminotransferase 41 U/L (12-78); Alkaline Phosphatase 48 U/L (38-126); Anion Gap 9.3 mEq/L (5-15); Aspartate Amino Transferase 33 U/L (17-59); Bilirubin,Direct 0.3 mg/dl (0.0-0.4); Bilirubin,Indirect 0.8 mg/dL (0.0-0.9); Bilirubin,Total 1.1 mg/dl (0.2-1.3); Bilirubin,Unconjugated 0.8 mg/dL (0.0-1.1); Blood Urea Nitrogen 18 mg/dl (9-20); Carbon Dioxide 30 mmol/L (22.0-30.0); Cholesterol 129 mg/dl (140-200); Creatinine,Serum 0.90 mg/dl (0.66-1.25); Estimated Glomerular Filt Rate 90 ml/min (>60); GFR (African American) 109 ML/MIN (>60); Total Protein,Serum 6.9 g/dl (6.3-8.2); Triglycerides 158 mg/dl (30-150)
[2025-06-04 16:33] LABS: Calcium 9.3 mg/dl (8.4-10.2); Glucose 88 mg/dl (74-100); HDL Cholesterol 37 mg/dl (40-60)
[2025-06-04 16:46] LABS: Free T4 (Free Thyroxine) 1.00 ng/dl (0.78-2.19)
[2025-06-04 17:03] LABS: Thyroid Stimulating Hormone 0.87 uIU/mL (0.465-4.68)
[2025-06-04 19:10] LABS: Hemoglobin A1C 5.7 % (4.0-6.0)
== END 2025-06-04 23:59 | disposition home or self-care (01) ==
LOC: LAB 14:17
PROVIDERS: PCP Nurse Practitioner Family; Visit Provider Nurse Practitioner Family
DX: G47.00 Insomnia, unspecified (principal); R73.03 Prediabetes; R06.09 Other forms of dyspnea; I10 Essential (primary) hypertension; Z82.49 Family history of ischemic heart disease and other diseases of the circulatory system
CPT/HCPCS: 36415; 80048; 80061; 80076; 83036; 84439; 84443; 85025